=== PATIENT | male | born 1955 | race Caucasian/White ===

== ENCOUNTER 2024-04-29 07:34 | Outpatient (CLI) | payer MEDICARE, OTHER, SELFPAY ==
--- NOTE | ~2024-04-29 | XR_ITS ---
HISTORY: Bilateral shoulder and AC joint pain, surgery hx COMPARISON: None TECHNIQUE: 3 views of the right shoulder were performed FINDINGS: No acute fracture. The glenohumeral and acromioclavicular joint space is maintained. Postoperative change within the right humeral head. The visualized portion of the adjacent right lung is clear. The humeral head is well seated within the glenoid fossa. IMPRESSION: No acute fracture or anterior dislocation. Reviewed, dictated and finalized at location A. UNTS RECEIVABLE REPRESENTATIVE
--- NOTE | ~2024-04-29 | XR_ITS ---
HISTORY: Bilateral shoulder and AC joint pain, surgery hx COMPARISON: None TECHNIQUE: 3 views of the left shoulder were performed FINDINGS: No acute fracture. The glenohumeral joint space is maintained. The acromioclavicular joint space is widened with multiple extra-articular osseous densities within t he joint space and upsloping of the distal end of the left clavicle. Findings consistent with prior tendon repair within the humeral head. The visualized portion of the adjacent left lung is clear. The humeral head is well seated within the glenoid fossa. IMPRESSION: Degenerative disease, without acute fracture or anterior dislocation. Reviewed, dictated and finalized at location A. NET SOFTWARE DEVELOPER
--- OUTSIDE RECORDS SUMMARY | 2024-04-29 07:42 | XMS_ITS | Encounter Summary ---
Author Name [facility] Organization [facility] Address [address] [place] [address] Care Team Providers Care Wildlife Protector Name Role Phone BHARATH LAWSON Primary Care Provider Unavailabl e Insurance Providers: All historical and current Section Date Range: From patient's date of to the date document was created. This section includes the names of all active insurance providers for the patient. Insurance Provider Type of Coverage Plan Name Start of Policy Coverage End of Policy Coverage Group Number Member ID Insurance Provider's Telephone Number Policy Arreaga's Name Patient's Relationship to Policy Arreaga MEDICARE (WNR) MEDICARE (M) PART A Sep 03, 2018 PART A [id number] HÉCTOR CROOK III PATIENT MEDICARE (WNR) MEDICARE (M) PART B Sep 03, 2018 PART B [id number] AMBREEN DRAKEHÉCTOR PATIENT -FO R-LIFE TRICA RE FOR LIFE WNR Sep 03, 2018 FOR LIFE [id number] [phone] HÉCTOR CROOK PATIENT Selected Encounter This section includes the information on record at [place] for the Encounter. Date/Time Encounter Type Encounter Description Reason Pro vider Source Mar 18, 2024 10:53 AM Outpatient Encounter [facility]ARE CONSULT [facility] Encounter Template Text not used by [facility] Plan of Treatment: Future Appointments (+ 6 months) and Future Tests (+/- 45 days) The Plan of Treatment section includes future care activities for the patient from all [place] treatmentfacilities. This section includes future appointments and future orders which are active, pending or scheduled. Future Appointments This section includes appointments that were scheduled to occur 6 months from the date of the Encounter, up to a maximum of 20 appointments. The data comes from all [place] treatment [facility]. Appointment Date/Time Appointment Type Appointme nt Facility Name May 30, 2024 08:00 AM AMBULATORY - NONE [facility] July 09, 2024 11:30 AM AMBULATORY - MEDICINE [facility] Active, Pending, and Scheduled Orders This section includes a listing of several types of active, pending, and scheduled orders, including clinic medications orders, diagnostic test orders, procedure orders and consult orders; where the start date of the order is 45 days before the date of the Encounter or 45 days after the date of theEncounter. The data comes from all [facility]. Test Date/Time Test Type Test Details Facility Name Mar 18, 2024 10:32 AM Consult Order [facility] DENTAL GEN Cons Physics Tutor's Choice [facility] Social History: Smoking Status (Most current) and Tobacco Use (All prior to encounter date) This section includes the most current, and the historical, smoking and tobacco- related health factors from the [place] facility where the Encounter took place. Current Smoking Status This section includes the most current smoking, or tobacco-related health factor, from the [place] facility where the Encounter took place. Date/Time Current Smoking Status Comment Keily hong Apr 25, 2019 01:06 PM VA-TOBACCO NEVER USED [facility] Tobacco Use History This section includes a history of the smoking, or tobacco-related health factors, that were collected on or before the date of the Encounter. The data comes from the [place] facility where the Encounter took place. Date/Time Smoking Status/Tobacco Use Comment F acility Jan 02, 2015 08:31 AM LIFETIME NON-USER OF TOBACCO [facility] Oct 31, 2013 02:39 PM LIFETIME NON-USER OF TOBACCO [facility] Sep 12, 2012 12:03 PM LIFETIME NON-USER OF TOBACCO [facility] Nov 10, 2006 08:40 AM LIFETIME NON-USER OF TOBACCO [facility] Advance Directives: All historical and current Section Date Range: From patient's date of to the date document was created. This section includes ALL of a patient's completed or amended [place] Advance and Rescinded Directives. The entries below indicate that a directive exists for the patient, but an actual copy is not included with this document. The data comes from all [place] facilities. Date Advance Directives Provider Source Aug 12, 2016 ADVANCE DIRECTIVE DISCUSSION TINA CHAN [facility] Encounter Notes: All associated encounter notes This section contains the clinical notes associated to the Encounter. Date/Time Encounter Note(s) Provider Source Mar 18, 2024 10:53 AM LETTERS: LOCAL TITLE: COMMUNITY CARE-REQUEST FOR SERVICES (RFS) LETTER ST STANDARD TITLE: LETTERS DATE OF NOTE: MAR 18, 2024@10:53 ENTRY DATE: MAR 18, 2024@10:53:54 AUTHOR: MANFRED CANTRELL EXP COSIGNER: URGENCY: STATUS: COMPLETED [facility] [address] [place] [address] [facility] Manjinder Farah [address] [place] [address] Dear Provider, Information: Patient Name: HÉCTOR CROOK Date of : Sep [facility] Dental Service has received the request [id number] PERIODIC ORAL EVALUATION-ESTABLISHED PT D0274 [place]-FOUR RADIOGRAPHIC IMAGES #3, D0220 INTRAORAL-PERIAPICAL FIRST FILM #14, 19, 30, D0230 INTRAORAL-PERIAPICAL EACH ADD. 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 D1206 TOPICAL APPLICATION OF FLUORIDE VARNISH from you for services that were not originally authorized in the [facility] Administration for this [place]. Upon review, the following determination has been made: Service has been approved. (Authorization #[id number]) Should you have questions, please contact us at [phone] to speak with a patient visitor service assistant. As a reminder, if applicable, return medical records within 30 days for routine services. Sincerely, MANFRED CANTRELL COMMUN[facility] CARE RN MANFRED CANTRELL [facility]
--- OUTSIDE RECORDS SUMMARY | 2024-04-29 07:43 | XMS_ITS | Encounter Summary ---
Author Organization [facility] Address 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
--- OUTSIDE RECORDS SUMMARY | 2024-04-29 07:43 | XMS_ITS ---
Author Name [facility] Address [address] [place] [address] Care Team Providers Care Spa Receptionist Name Role Phone BHARATH LAWSON Primary Care [...] PART A Sep 03, 2018 PART A [id number] HÉCTOR CROOK III PATIENT MEDICARE (WNR) MEDICARE (M) PART B Sep 03, 2018 PART B [id number] AMBREEN DRAKEHÉCTOR PATIENT -FO R-LIFE TRICA RE FOR LIFE WNR Sep 03, 2018 FOR LIFE [id number] [phone] HÉCTOR CROOK PATIENT Selected Encounter This section includes the information on record at [place] for the Encounter. Date/Time Encounter Type Encounter Description Reason Pro vider Source Mar 18, 2024 08:39 AM Outpatient Encounter COMMUNITY CARE CONSULT IHE Encounter Template Text not used by [facility] Plan of Treatment: Future Appointments (+ 6 months) and Future Tests (+/- 45 days) The Plan of Treatment section includes future care activities for the patient from all [place] treatmentfacilities. This section includes future appointments and future orders which are active, pending or scheduled. Future Appointments This section includes appointments that were scheduled to occur 6 months from the date of the Encounter, up to a maximum of 20 appointments. The data comes from all [place] treatment [facility]. Appointment Date/Time Appointment Type Appointme nt Facility Name May 30, 2024 08:00 AM AMBULATORY - NONE [facility] July 09, 2024 11:30 AM AMBULATORY - MEDICINE [facility] Active, Pending, and Scheduled Orders This section includes a listing of several types of active, pending, and scheduled orders, including clinic medications orders, diagnostic test orders, procedure orders and consult orders; where the start date of the order is 45 days before the date of the Encounter or 45 days after the date of theEncounter. The data comes from all [facility]. Test Date/Time Test Type Test Details Facility Name Mar 18, 2024 10:32 AM Consult Order COMMUNITY CARE-[facility] DENTAL GEN Cons Marketing Clerk's Choice [facility] Social History: Smoking Status (Most current) and Tobacco Use (All prior to encounter date) This section includes the most current, and the historical, smoking and tobacco- related health factors from the [place] facility where the Encounter took place. Current Smoking Status This section includes the most current smoking, or tobacco-related health factor, from the [place] facility where the Encounter took place. Date/Time Current Smoking Status Comment Keily hong Apr 25, 2019 01:06 PM VA-TOBACCO NEVER USED [facility] Tobacco Use History This section includes a history of the smoking, or tobacco-related health factors, that were collected on or before the date of the Encounter. The data comes from the [place] facility where the Encounter took place. Date/Time Smoking Status/Tobacco Use Comment F acility Jan 02, 2015 08:31 AM LIFETIME NON-USER OF TOBACCO [facility] Oct 31, 2013 02:39 PM LIFETIME NON-USER OF TOBACCO [facility] Sep 12, 2012 12:03 PM LIFETIME NON-USER OF TOBACCO [facility] Nov 10, 2006 08:40 AM LIFETIME NON-USER OF TOBACCO [facility] Advance Directives: All historical and current Section Date Range: From patient's date of to the date document was created. This section includes ALL of a patient's completed or amended [place] Advance and Rescinded Directives. The entries below indicate that a directive exists for the patient, but an actual copy is not included with this document. The data comes from all [place] facilities. Date Advance Directives Provider Source Aug 12, 2016 ADVANCE DIRECTIVE DISCUSSION TINA CHAN [facility] Encounter Notes: All associated encounter notes This section contains the clinical notes associated to the Encounter. Date/Time Encounter Note(s) Provider Source Mar 18, 2024 10:30 AM ADDENDUM: LOCAL TITLE: Addendum STANDARD TITLE: ADDENDUM DATE OF NOTE: MAR 18, 2024@10:30:45 ENTRY DATE: MAR 18, 2024@10:30:46 AUTHOR: KATE DENSON COSIGNER: URGENCY: STATUS: COMPLETED [facility] DENTAL SERVICE/COMMUNITY CARE RFS DETERMINATION The requested treatment: AUTHORIZED SUBMITTED. AUTHORIZED TREATMENT: D0120 PERIODIC ORAL EVALUATION-ESTABLISHED PT D0274 BITEWINGS-FOUR RADIOGRAPHIC IMAGES #3, D0220 INTRAORAL-PERIAPICAL FIRST FILM #14, 19, 30, D0230 INTRAORAL-PERIAPICAL EACH ADD. 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 * New consult(s) placed with corresponding SEOC(s). * to continue dental treatment with community provider. REQUESTING PROVIDER: Manjinder Antoine [address] [place] [address] Specialty: Dentist - Control Room Helper Network: [facility] COMMUNITY CARE COORDINATION NOTES Please continue 's care for authorized treatment. /donna/ KATE DENSON DMD STAFF DENTIST, GENERAL DENTIST Signed: 03/18/2024 10:32 Receipt Acknowledged By: 03/18/2024 10:49 /juli [facility]LL [facility] RN --- Original Document --- 03/18/24 COMMUNITY CARE-REQUEST FOR SERVICE NOTE [facility]: Request for Services (RFS) documentation has been sent for scanning to [employer] Community Care Consult: COMMUNITY CARE-STL DEN GEN Consult No: [id number] Date sent to scanning: Mar A Request for Service (RFS) form [id number] has been received which includes the following: Care Requested: D0120 PERIODIC ORAL EVALUATION-ESTABLISHED PT D0274 BITEWINGS-FOUR RADIOGRAPHIC IMAGES #3, D0220 INTRAORAL-PERIAPICAL FIRST FILM #14, 19, 30, D0230 INTRAORAL-PERIAPICAL EACH ADD. 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 D1206 TOPICAL APPLICATION OF FLUORIDE VARNISH ICD-10 Dx code: K03.6 Date VA received request: Mar Date service required: Mar Requesting [facility] Provider Information: [facility] Manjinder Escobedo [address] [place] [address] Specialty: Dentist - Control Room Helper Network: [facility] /donna/ FUENTES MONTERO ADVANCED SHOW CARD WRITER Signed: 03/18/2024 08:46 Receipt Acknowledged By: 03/18/2024 10:30 /donna/ KATE DENSON DMD STAFF DENTIST, GENERAL DENTIST KATE DENSONMID [facility] Mar 18, 2024 08:39 AM NONVA NOTE: LOCAL TITLE: COMMUNITY CARE-REQUEST FOR SERVICE NOTE ST[facility] STANDARD TITLE: NONVA NOTE DATE OF NOTE: MAR 18, 2024@08:39 ENTRY DATE: MAR 18, 2024@08:41:37 AUTHOR: FUENTES MONTERO EXP COSIGNER: URGENCY: STATUS: COMPLETED COMMUNITY CARE-REQUEST FOR SERVICE NOTE ST[facility] Has ADDENDA Request for Services (RFS) documentation has been sent for scanning to [employer] Community Care Consult: COMMUNITY CARE-ST[facility] DEN GEN Consult No: [id number] Date sent to scanning: Mar A Request for Service (RFS) form [id number] has been received which includes the following: Care Requested: D0120 PERIODIC ORAL EVALUATION-ESTABLISHED PT D0274 BITEWINGS-FOUR RADIOGRAPHIC IMAGES #3, D0220 INTRAORAL-PERIAPICAL FIRST FILM #14, 19, 30, D0230 INTRAORAL-PERIAPICAL EACH ADD. 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 D1206 TOPICAL APPLICATION OF FLUORIDE VARNISH ICD-10 Dx code: K03.6 Date VA received request: Mar Date service required: Mar Requesting Community Provider Information: Manjinder Antoine [address] [place] [address] Specialty: Dentist - Control Room Helper Network: [place] [id number] /juli MONTERO ADVANCED SHOW CARD WRITER Signed: 03/18/2024 08:46 Receipt Acknowledged By: 03/18/2024 10:30 /juli DENSON DMD STAFF DENTIST, GENERAL DENTIST 03/18/2024 ADDENDUM STATUS: COMPLETED [facility] DENTAL SERVICE/[facility] CARE RFS DETERMINATION The requested treatment: AUTHORIZED SUBMITTED. AUTHORIZED TREATMENT: D0120 PERIODIC ORAL EVALUATION-ESTABLISHED PT D0274 BITEWINGS-FOUR RADIOGRAPHIC IMAGES #3, D0220 INTRAORAL-PERIAPICAL FIRST FILM #14, 19, 30, D0230 INTRAORAL-PERIAPICAL EACH ADD. 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 * New consult(s) placed with corresponding SEOC(s). * to continue dental treatment with community provider. REQUESTING PROVIDER: Manjinder Antoine [address] [place] [address] Specialty: Dentist - Control Room Helper Network: [place] [id number] COMMUNITY CARE COORDINATION NOTES Please continue 's care for authorized treatment. /juli DENSON DMD STAFF DENTIST, GENERAL DENTIST Signed: 03/18/2024 10:32 Receipt Acknowledged By: * AWAITING SIGNATURE * MANFRED CANTRELL GABRY'EL P [facility]
--- OUTSIDE RECORDS SUMMARY | 2024-04-29 07:43 | XMS_ITS | Continuity of Care Document ---
Author Name DOD-IN Organization DOD-IN Care Team Providers Care Sanitation Inspector Name Role Phone [facility] Unavailable Unavailable Problems Combined list of problems from Department of Defense and Veterans Affairs facilities. It does not include entries that were removed or entered in error. 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 DoD astigmatism regular Active Condition Do D injury of upper extremity fingers Inactive Condition DoD seborrheic keratosis Inactive Condition DoD fracture Inactive Condition DoD fracture of ankle Inactive Condition DoD ankle sprain anterior talofibular ligament left Inactive Condition DoD insomnia Active Condition [facility] visit for: issue repeat prescription Active Condition [facility] visit for: preoperative exam Active Condition [facility] visit for: issue repeat prescription for medication Active Condition 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 DoD Patient Counseling: Inquiry & Counseling Active Condition [facility] visit for: administrative purpose Inactive Condition DoD Other Physical Therapy Active Condition DoD spinal stenosis cervical Active Condition DoD cervicalgia Active Condition DoD hearing loss Active Condition DoD Patient Education Active Condition 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 [facility] Benign prostatic hyperplasia Active Condition [facility] Chronic back pain (SNOMED CT 842088415) Active Condition [facility] Gastroesophageal reflux disease (SNOMED CT 413953757) Active Condition [facility] Spinal stenosis in cervical region (SNOMED CT 66466640) Active Condition [facility] Ulcer of lower extremity (SNOMED CT 60100630) Active Condition [facility] Unspecified General Medical Examination (ICD-9-CM V70.9) Active Condition [facility] Diagnosis: ICD-10-CM M48.02 Spinal stenosis, cervical region Active Diagnosis [facility] Diagnosis: ICD-10-CM Z71.9 Counseling, unspecified Active Diagnosis [facility] Diagnosis: ICD-10-CM N40.0 Benign prostatic hyperplasia without lower urinry tract symp Active Diagnosis [facility] Diagnosis: ICD-10-CM N40.1 Benign prostatic hyperplasia with lower urinary tract symp Active Diagnosis [facility] Medications Combined list of outpatient medications from Department of Defense and [facility] Affairs facilities.Medications provided include 1) outpatient medications from the last 15 months, and 2) patient-reported medications. Medication Details Route Status Patient Instructions Prescription Expires Prescription Number Last Dispense Date Ordering Provider Order Date Order Qty Source ASPIRIN 81MG TAB,EC TAKE ONE TABLET BY MOUTH ONCE A DAY ORAL ACTIVE KELLY LAWSON 2017 [facility] CHONDROITIN /GLUCOSAMIN E CAP/TAB TAKE 1 CAP/TAB BY MOUTH TWICE A DAY ORAL ACTIVE LULUKELLY WEBB 2017 [facility] CYCLOSPORIN E (cyclospori ne), 0.05 %, DROPERETTE, OPHTHALMIC, APOTEX NABOR, 60 ea. VIAL Active [id number] 2023 180 Pharmac y Data Transac tion Service Facilit y FISH OIL 1000MG (500MG DHA/EPA) CAP,ORAL TAKE 1 CAPSULE BY MOUTH ONCE A DAY ORAL ACTIVE LULUKELLY Shen 2017 [facility] MULTIVITAMI NS CAP/TAB TAKE ONE TABLET BY MOUTH ONCE A DAY ORAL ACTIVE LULUKELLY WEBB 2017 [facility] PSYLLIUM CAP,ORAL TAKE 1 CAPSULE BY MOUTH ONCE A DAY ORAL ACTIVE LULUKELLY Shen 2017 [facility] ZOSTER VACCINE LIVE INJ,LYPHL INJECT UNDER THE SKIN ONE-TIME SUBCUT ANEOUS ACTIVE CEZAR GONZALEZ 2013 [facility] Allergies, Adverse Reactions, Alerts Combined list of allergies from Department of Defense and Veterans Affairs facilities. It does not include entries that were removed or entered in error. Substance Category Reaction Severity Reaction type Status Date Reported Comments Source No Known Allergies Drug allergy (disorder) active 07/08/2008 [place], [place] Immunizations Combined list of available immunizations from the Department of [facility] and Veterans Affairs facilities. Immunization Series Date Given Administered By Site Reaction Lot Number CVX Code Drug Order Runner Status Comments Source COVID-19 ([place] EXTENDED STAYS), VECTOR-NR, [id number], PF, 0.5 ML 1 2020 212 complet ed [facility] pneumococcal polysaccharid e PPV23 2019 [facility] () Not Given pneumococ giovana polysacch aride PPV23 [facility] Influenza vaccine, quadrivalent, adjuvanted 2019 [facility] () Not Given Influenza vaccine, quadrival ent, adjuvante d DoD INFLUENZA, UNSPECIFIED FORMULATION 2019 88 complet ed [facility] PNEUMOCOCCAL POLYSACCHARID E PPV23 2019 33 complet ed [facility] ZOSTER RECOMBINANT 2 2019 187 complet ed [facility] ZOSTER RECOMBINANT 1 2019 187 complet ed [facility] INFLUENZA, INJECTABLE, QUADRIVALENT, PRESERVATIVE FREE 2018 150 complet ed [facility] zoster recombinant 2018 [facility] MOR[facility] () Not Given zoster recombina nt [facility] zoster recombinant 2018 ELISA HALEY () Not Given zoster recombina nt [facility] INFLUENZA, INJECTABLE, QUADRIVALENT, PRESERVATIVE FREE 2017 150 complet ed Partner: [facility]. Administe red by: [facility] Clinician (NPI=Not Provided) . Partner 4 Lot#: [id number] Mfr: Sanofi Pasteur [facility] TDAP 2016 115 complet ed [facility] INFLUENZA, SEASONAL, INJECTABLE, PRESERVATIVE FREE 2015 140 complet ed Partner: Angella . Administe red by: [facility] Clinician (NPI=Not Provided) . Partner 4 Lot#: [id number] Mfr: SEQIRUS [facility] INFLUENZA, SEASONAL, INJECTABLE, PRESERVATIVE FREE 2014 140 complet ed [facility] INFLUENZA, UNSPECIFIED FORMULATION 2013 88 complet ed [facility] ZOSTER LIVE 2013 121 complet ed [facility] TD(ADULT) UNSPECIFIED FORMULATION 2013 139 complet ed Left Deltoid [facility] INFLUENZA, UNSPECIFIED FORMULATION 2012 88 complet ed [facility] INFLUENZA, UNSPECIFIED FORMULATION 2011 88 complet ed [facility] INFLUENZA, UNSPECIFIED FORMULATION 2010 88 complet ed [employer] influenza, seasonal, injectable 2010 [id number] sanofi pasteur complet ed influenza , seasonal, injectabl e 11/19/10 Given Ambulat ory Pharmac y Influenza, seasonal, injectable 1 2010 [id number] Sanofi Pasteur ([facility]) complet ed Influenza , seasonal, injectabl e DoD hepatitis A adult vaccine 2010 [id number] 2AA 52 GlaxoSmithKli ne complet ed hepatitis A adult vaccine 04/12/10 Given Ambulat ory Pharmac y hepatitis A vaccine, adult dosage 2 2010 [id number] 2AA 52 SmithKline (SKB) complet ed hepatitis A vaccine, adult dosage DoD influenza virus vaccine,split 2009 [id number] CSL Behring complet ed influenza virus vaccine,s plit 01/18/10 Given Ambulat ory Pharmac y influenza virus vaccine, split virus (incl. purified surface antigen)-reti red CODE 1 2009 [id number] CSL [employer] (CSL) complet ed influenza virus vaccine, split virus (incl. purified surface antigen)- retired CODE DoD Novel influenza-H1N 1-09, injectable 2009 [id number] 1 127 Novartis Pharmaceutica ls complet ed Novel influenza -[id number], injectabl e 04/17/09 Given Ambulat ory Pharmac y Novel influenza-H1N 1-09, injectable 1 2009 [id number] 1 127 Novartis Pharmaceutica l Nabor. (NOV) complet ed Novel influenza -[id number], injectabl e DoD hepatitis A adult vaccine 2008 [id number] 3AA 52 GlaxoSmithKli ne complet ed hepatitis A adult vaccine 01/15/09 Given Ambulat ory Pharmac y tetanus, diphtheria, acellular pertu is 2008 [id number] 9CA 115 GlaxoSmithKli ne complet ed tetanus, diphtheri a, acellular pertussis 01/15/09 Given Ambulat ory Pharmac y hepatitis A vaccine, adult dosage 1 2008 [id number] 3AA 52 SmithKline (SKB) complet ed hepatitis A vaccine, adult dosage DoD tetanus toxoid, reduced diphtheria toxoid, and acellular pertu is vaccine, adsorbed 1 2008 [id number] 9CA 115 SmithKline (SKB) complet ed tetanus toxoid, reduced diphtheri a toxoid, and acellular pertussis vaccine, adsorbed DoD influenza virus vaccine,split 2008 [id number] 15 sanofi pasteur complet ed influenza virus vaccine,s plit 01/09/09 Given Ambulat ory Pharmac y influenza virus vaccine, split virus (incl. purified surface antigen)-reti red CODE 1 2008 [id number] 15 Sanofi Pasteur ([facility]) complet ed influenza virus vaccine, split virus (incl. purified surface antigen)- retired CODE DoD INFLUENZA, UNSPECIFIED FORMULATION 2007 88 complet ed [facility] INFLUENZA, UNSPECIFIED FORMULATION 2006 88 complet ed [facility] influenza virus vaccine,split 2004 [id number] 15 sanofi pasteur complet ed influenza virus vaccine,s plit 01/24/05 Given Ambulat ory Pharmac y influenza virus vaccine, split virus (incl. purified surface antigen)-reti red CODE 1 2004 [id number] 15 Sanofi Pasteur ([facility]) complet ed influenza virus vaccine, split virus (incl. purified surface antigen)- retired CODE DoD TDAP 2003 115 complet ed [facility] tuberculin purified protein derivative 1984 96 complet ed Patient Tolerance : Negative Ambulat ory Pharmac y tuberculin skin test; purified protein derivative solution, intradermal 1 1984 Unknown, Provider 96 Transcribed (TRS) complet ed tuberculi n skin test; purified protein derivativ e solution, intraderm al DoD poliovirus vaccine, inactivated 1978 10 complet ed polioviru s vaccine, inactivat ed 09/03/78 Given Ambulat ory Pharmac y poliovirus vaccine, inactivated 1 1978 10 Transcribed (TRS) complet ed polioviru s vaccine, inactivat ed DoD Results Combined list of recent chemistry, hematology and other laboratory results from Department of Defense and Veterans Affairs, ranging from 15 months to all on record, depending upon the facility. Order Name Results Value Reference Range Date Interpretation Specimen Comments Source OCCULT BLOOD FIT X1 SCREEN HEMOGLOBIN .GASTROINT ESTINAL.LO WER [PRESENCE] IN STOOL BY IMMUNOASSA Y Negative 09/12 Specimen Type: FECES No comment entered. Ordering Provider: BJORN LAWSON Report Released Date/Time: Sep 19, 2023 01:22 PM Reporting Lab: [facility] [address] [place] [phone] Performing Lab: [facility] [address] [place] [phone] [facility] URINALYS IS (STL-PB) COLOR OF URINE Light-Ye llow 06/11 Specimen Type: URINE No comment entered. Ordering Provider: BJORN LAWSON Report Released Date/Time: Jun 06, 2023 03:02 PM Reporting Lab: [facility] [address] [place] [phone] Performing Lab: [address] [phone] [facility] URINALYS IS (STL-PB) BILIRUBIN. TOTAL [PRESENCE] IN URINE BY TEST STRIP Negative mg/dL 06/11 Specimen Type: URINE No comment entered. Ordering Provider: BJORN LAWSON Report Released Date/Time: Jun 06, 2023 03:02 PM Reporting Lab: [facility] [address] [place] [phone] Performing Lab: [place] [phone] URINALYS IS (STL-PB) PH OF URINE BY TEST STRIP 6.5 5.0 - 8.0 06/11 Specimen Type: URINE No comment entered. Ordering Provider: BJORN LAWSON Report Released Date/Time: Jun 06, 2023 03:02 PM Reporting Lab: [address] [phone] Performing Lab: [address] URINALYS IS (STL-PB) APPEARANCE OF URINE Clear 06/11 Specimen Type: URINE No comment entered. Ordering Provider: BJORN LAWSON Report Released Date/Time: Jun 06, 2023 03:02 PM Reporting Lab: [address] [phone] Performing Lab: [address] [phone] [place] [address] URINALYS IS (STL-PB) NITRITE [PRESENCE] IN URINE BY TEST STRIP Negative mg/dL 06/11 Specimen Type: URINE No comment entered. Ordering Provider: BJORN LAWSON Report Released Date/Time: Jun 06, 2023 03:02 PM Reporting Lab: [address] [address] Performing Lab: [address] [address] [facility] URINALYS IS (STL-PB) GLUCOSE [MASS/VOLU ME] IN URINE BY TEST STRIP Normalmg /dL 06/11 Specimen Type: URINE No comment entered. Ordering Provider: BJORN LAWSON Report Released Date/Time: Jun 06, 2023 03:02 PM Reporting Lab: [facility] [address] [place] [phone] Performing Lab: [address] [phone] [facility] URINALYS IS (STL-PB) PROTEIN [MASS/VOLU ME] IN URINE BY TEST STRIP Negative mg/dL - 20 06/11 Specimen Type: URINE No comment entered. Ordering Provider: BJORN LAWSON Report Released Date/Time: Jun 06, 2023 03:02 PM Reporting Lab: [address] [phone] Performing Lab: [address] [phone] URINALYS IS (STL-PB) URN.UROBIL INOGEN Normalmg /dL 06/11 Specimen Type: URINE No comment entered. Ordering Provider: BJORN LAWSON Report Released Date/Time: Jun 06, 2023 03:02 PM Reporting Lab: [address] [phone] Performing Lab: [address] [phone] [facility] URINALYS IS (STL-PB) HEMOGLOBIN [MASS/VOLU ME] IN URINE BY TEST STRIP Negative mg/dL 06/11 Specimen Type: URINE No comment entered. Ordering Provider: BJORN LAWSON Report Released Date/Time: Jun 06, 2023 03:02 PM Reporting Lab: [facility] [address] [place] [phone] Performing Lab: [address] [address] [facility] URINALYS IS (STL-PB) KETONES [MASS/VOLU ME] IN URINE BY TEST STRIP Negative mg/dL 06/11 Specimen Type: URINE No comment entered. Ordering Provider: BJORN LAWSON Report Released Date/Time: Jun 06, 2023 03:02 PM Reporting Lab: [place] [address] Performing Lab: [address] URINALYS IS (STL-PB) URN.LEUK.E ST. Negative mg/dL 06/11 Specimen Type: URINE No comment entered. Ordering Provider: BJORN LAWSON Report Released Date/Time: Jun 06, 2023 03:02 PM Reporting Lab: [place] [address] Performing Lab: [address] URINALYS IS (STL-PB) SPECIFIC GRAVITY OF URINE 1.010 1.005 - 1.029 06/11 Specimen Type: URINE No comment entered. Ordering Provider: BJORN LAWSON Report Released Date/Time: Jun 06, 2023 03:02 PM Reporting Lab: [place] [address] Performing Lab: [address] PROST. SPECIFIC AG.(PB-S TL) PROSTATE SPECIFIC AG [MASS/VOLU ME] IN SERUM OR PLASMA 3.316 ng/mL 0 - 4 06/11 Specimen Type: SERUM Comment: The listed sex of this patient may not be a typical indication for this test. Therefore, reference ranges or interpretiv e criteria listed may not be valid. Clinical correlation suggested. Ordering Provider: MINISTERIO VILLAR Report Released Date/Time: Jun 12, 2023 09:45 AM Reporting Lab: [place] [address] Performing Lab: [facility] [address] [facility] [address] [facility] HGA1C HEMOGLOBIN A1C/HEMOGL OBIN.TOTAL IN BLOOD 5.3 4.0 - 6.0 06/11 Specimen Type: BLOOD No comment entered. Ordering Provider: JBORN LAWSON Report Released Date/Time: Jun 06, 2023 03:02 PM Reporting Lab: [address] [phone] Performing Lab: [facility] [address] [place] [phone] [facility] VITAMIN D, 25-HYDRO XY 25-HYDROXY VITAMIN D3 [MASS/VOLU ME] IN SERUM OR PLASMA 35.8 ng/mL 30 - 96 06/11 Specimen Type: SERUM No comment entered. Ordering Provider: BJORN LAWSON Report Released Date/Time: Jun 06, 2023 03:02 PM Reporting Lab: [facility] [address] [place] [phone] Performing Lab: [address] [phone] [facility] LIPID PANEL (STL) CHOLESTERO L [MASS/VOLU ME] IN SERUM OR PLASMA 198 mg/dL 0 - 200 06/11 Specimen Type: PLASMA Comment: No hemolysis noted. Ordering Provider: BJORN LAWSON Report Released Date/Time: Jun 06, 2023 03:02 PM Reporting Lab: [facility] [address] [place] [phone] Performing Lab: [address] [address] [facility] LIPID PANEL (STL) TRIGLYCERI DE [MASS/VOLU ME] IN SERUM OR PLASMA 93 mg/dL 0 - 150 06/11 Specimen Type: PLASMA Comment: No hemolysis noted. Ordering Provider: BJORN LAWSON Report Released Date/Time: Jun 06, 2023 03:02 PM Reporting Lab: [facility] [address] [facility] [phone] Performing Lab: [facility] [address] [facility] [phone] [facility] LIPID PANEL (STL) CHOLESTERO L IN LDL [MASS/VOLU ME] IN SERUM OR PLASMA BY CALCULAMADELEINEO N 126 mg/dL 06/11 Specimen Type: PLASMA Comment: No hemolysis noted. Ordering Provider: BJORN LAWSON Report Released Date/Time: Jun 06, 2023 03:02 PM Reporting Lab: [facility] [address] [place] [phone] Performing Lab: [place] [id number] [place] [address] LIPID PANEL (STL) CHOLESTERO L IN HDL [MASS/VOLU ME] IN SERUM OR PLASMA 53 mg/dL 40 06/11 Specimen Type: PLASMA Comment: No hemolysis noted. Ordering Provider: BJORN LAWSON Report Released Date/Time: Jun 06, 2023 03:02 PM Reporting Lab: [facility] [address] [place] [phone] Performing Lab: [facility] [address] [place] [phone] [facility] COMPREHE NSIVE METABOLI C PANEL CREATININE [MASS/VOLU ME] IN SERUM OR PLASMA 1.07 mg/dL 0.7 - 1.3 06/11 Specimen Type: PLASMA Comment: No hemolysis noted. Ordering Provider: BJORN LAWSON Report Released Date/Time: Jun 06, 2023 03:02 PM Reporting Lab: [facility] [address] [place] [phone] Performing Lab: [facility] [address] [place] [phone] [facility] COMPREHE NSIVE METABOLI C PANEL UREA NITROGEN [MASS/VOLU ME] IN SERUM OR PLASMA 13.9 mg/dL 9.0 - 25.0 06/11 Specimen Type: PLASMA Comment: No hemolysis noted. Ordering Provider: BJORN LAWSON Report Released Date/Time: Jun 06, 2023 03:02 PM Reporting Lab: [facility] [address] [facility] [address] Performing Lab: [facility] [address] [facility] [phone] [place] [address] COMPREHE NSIVE METABOLI C PANEL GLUCOSE [MASS/VOLU ME] IN SERUM OR PLASMA 97 mg/dL 72 - 99 06/11 Specimen Type: PLASMA Comment: No hemolysis noted. Ordering Provider: BJORN LAWSON Report Released Date/Time: Jun 06, 2023 03:02 PM Reporting Lab: [facility] [address] [place] [phone] Performing Lab: [facility] [address] [place] [phone] [place] [address] COMPREHE NSIVE METABOLI C PANEL SODIUM [MOLES/VOL UME] IN SERUM OR PLASMA 139 meq/L 136 - 145 06/11 Specimen Type: PLASMA Comment: No hemolysis noted. Ordering Provider: BJORN LAWSON Report Released Date/Time: Jun 06, 2023 03:02 PM Reporting Lab: [facility] [address] [place] [phone] Performing Lab: [facility] [address] [place] [phone] [place] [address] COMPREHE NSIVE METABOLI C PANEL POTASSIUM [MOLES/VOL UME] IN SERUM OR PLASMA 4.4 meq/L 3.5 - 5 06/11 Specimen Type: PLASMA Comment: No hemolysis noted. Ordering Provider: BJORN LAWSON Report Released Date/Time: Jun 06, 2023 03:02 PM Reporting Lab: [facility] [address] [place] [phone] Performing Lab: [facility] [address] [place] [phone] [facility] COMPREHE NSIVE METABOLI C PANEL CHLORIDE [MOLES/VOL UME] IN SERUM OR PLASMA 105 meq/L 98 - 107 06/11 Specimen Type: PLASMA Comment: No hemolysis noted. Ordering Provider: BJORN LAWSON Report Released Date/Time: Jun 06, 2023 03:02 PM Reporting Lab: [facility] [address] [place] [phone] Performing Lab: [facility] [address] [place] [phone] [facility] COMPREHE NSIVE METABOLI C PANEL CARBON DIOXIDE, TOTAL [MOLES/VOL UME] IN SERUM OR PLASMA 27 meq/L 22 - 31 06/11 Specimen Type: PLASMA Comment: No hemolysis noted. Ordering Provider: BJORN LAWSON Report Released Date/Time: Jun 06, 2023 03:02 PM Reporting Lab: [facility] [address] [place] [phone] Performing Lab: [facility] [address] [place] [address] [phone] [place] [address] COMPREHE NSIVE METABOLI C PANEL CALCIUM [MASS/VOLU ME] IN SERUM OR PLASMA 9.4 mg/dL 8.4 - 10.4 06/11 Specimen Type: PLASMA Comment: No hemolysis noted. Ordering Provider: BJORN LAWSON Report Released Date/Time: Jun 06, 2023 03:02 PM Reporting Lab: [facility] [address] [place] [phone] Performing Lab: [facility] [address] [place] [phone] [facility] COMPREHE NSIVE METABOLI C PANEL PROTEIN [MASS/VOLU ME] IN SERUM OR PLASMA 7.3 g/dL 6 - 8.6 06/11 Specimen Type: PLASMA Comment: No hemolysis noted. Ordering Provider: BJORN LAWSON Report Released Date/Time: Jun 06, 2023 03:02 PM Reporting Lab: [facility] [address] [place] [phone] Performing Lab: [facility] [address] [place] [phone] [facility] COMPREHE NSIVE METABOLI C PANEL ALBUMIN [MASS/VOLU ME] IN SERUM OR PLASMA 4.4 g/dL 3.4 - 5 06/11 Specimen Type: PLASMA Comment: No hemolysis noted. Ordering Provider: BJORN LAWSON Report Released Date/Time: Jun 06, 2023 03:02 PM Reporting Lab: [facility] [address] [place] [phone] Performing Lab: [facility] [address] [place] [phone] [facility] COMPREHE NSIVE METABOLI C PANEL BILIRUBIN. TOTAL [MASS/VOLU ME] IN SERUM OR PLASMA 1.1 mg/dL 0.2 - 1.2 06/11 Specimen Type: PLASMA Comment: No hemolysis noted. Ordering Provider: BJORN LAWSON Report Released Date/Time: Jun 06, 2023 03:02 PM Reporting Lab: [facility] [address] [place] [phone] Performing Lab: [facility] [address] [facility] [phone] [facility] COMPREHE NSIVE METABOLI C PANEL ALKALINE PHOSPHATAS E [ENZYMATIC ACTIVITY/V OLUME] IN SERUM OR PLASMA 114 U/L 40 - 150 06/11 Specimen Type: PLASMA Comment: No hemolysis noted. Ordering Provider: BJORN LAWSON Report Released Date/Time: Jun 06, 2023 03:02 PM Reporting Lab: [facility] [address] [facility] [phone] Performing Lab: [facility] [address] [facility] [phone] [facility] COMPREHE NSIVE METABOLI C PANEL ASPARTATE AMINOTRANS FERASE [ENZYMATIC ACTIVITY/V OLUME] IN SERUM OR PLASMA 20 U/L 5 - 34 06/11 Specimen Type: PLASMA Comment: No hemolysis noted. Ordering Provider: BJORN LAWSON Report Released Date/Time: Jun 06, 2023 03:02 PM Reporting Lab: [facility] [address] [phone] Performing Lab: [facility] [address] [facility] [phone] [facility] COMPREHE NSIVE METABOLI C PANEL ALANINE AMINOTRANS FERASE [ENZYMATIC ACTIVITY/V OLUME] IN SERUM OR PLASMA 21 U/L 8 - 40 06/11 Specimen Type: PLASMA Comment: No hemolysis noted. Ordering Provider: BJORN LAWSON Report Released Date/Time: Jun 06, 2023 03:02 PM Reporting Lab: [facility] [address] [place] [phone] Performing Lab: [facility] [address] [place], [place] [phone] [address] COMPREHE NSIVE METABOLI C PANEL GLOMERULAR FILTRATION RATE/1.73 SQ M.PREDICTE D [VOLUME RATE/AREA] IN SERUM, PLASMA OR BLOOD BY CREATININE -BASED FORMULA (CKD-EPI 2020) 75.1 60 06/11 Specimen Type: PLASMA Comment: No hemolysis noted. Ordering Provider: BJORN LAWSON Report Released Date/Time: Jun 06, 2023 03:02 PM Reporting Lab: [facility] [address] [place], [place] [phone] Performing Lab: [facility] [address] [place], [place] [phone] [place] [address] CBC LEUKOCYTES [#/VOLUME] IN BLOOD BY AUTOMATED COUNT 6.5 10*3/uL 3.6 - 11.2 06/11 Specimen Type: BLOOD No comment entered. Ordering Provider: BJORN LAWSON Report Released Date/Time: Jun 06, 2023 03:02 PM Reporting Lab: [facility] [address] [place] [phone] Performing Lab: [facility] [address] [place] [phone] [facility] CBC ERYTHROCYT ES [#/VOLUME] IN BLOOD BY AUTOMATED COUNT 5.12 10*6/uL 4.10 - 5.70 06/11 Specimen Type: BLOOD No comment entered. Ordering Provider: BJORN LAWSON Report Released Date/Time: Jun 06, 2023 03:02 PM Reporting Lab: [facility] [address] [place] [address] Performing Lab: [facility] [address] [place], [place] [phone] [address] CBC HEMOGLOBIN [MASS/VOLU ME] IN BLOOD 16.1 g/dL 13.1 - 16.8 06/11 Specimen Type: BLOOD No comment entered. Ordering Provider: BJORN LAWSON Report Released Date/Time: Jun 06, 2023 03:02 PM Reporting Lab: [facility] [address] [place] [address] Performing Lab: [address] CBC HEMATOCRIT [VOLUME FRACTION] OF BLOOD 46.7 38.2 - 48.4 06/11 Specimen Type: BLOOD No comment entered. Ordering Provider: BJORN LAWSON Report Released Date/Time: Jun 06, 2023 03:02 PM Reporting Lab: [facility] [address] [place] [address] Performing Lab: [facility] [address] [place], [place] [phone] [address] CBC MCV [ENTITIC VOLUME] BY AUTOMATED COUNT 91.2 fL 80.0 - 100.0 06/11 Specimen Type: BLOOD No comment entered. Ordering Provider: BJORN LAWSON Report Released Date/Time: Jun 06, 2023 03:02 PM Reporting Lab: [facility] [address] [place] [address] Performing Lab: [facility] [address] [place] [address] CBC MCH [ENTITIC MASS] BY AUTOMATED COUNT 31.4 pg 27.0 - 34.0 06/11 Specimen Type: BLOOD No comment entered. Ordering Provider: BJORN LAWSON Report Released Date/Time: Jun 06, 2023 03:02 PM Reporting Lab: [facility] [address] [place] [phone] Performing Lab: [facility] [address] [place] [phone] [place] [address] CBC MCHC [MASS/VOLU ME] BY AUTOMATED COUNT 34.5 g/dL 33.0 - 36.0 06/11 Specimen Type: BLOOD No comment entered. Ordering Provider: BJORN LAWSON Report Released Date/Time: Jun 06, 2023 03:02 PM Reporting Lab: [facility] [address] [place] [phone] Performing Lab: [address] CBC PLATELETS [#/VOLUME] IN BLOOD BY AUTOMATED COUNT 206 10*3/uL 150 - 400 06/11 Specimen Type: BLOOD No comment entered. Ordering Provider: BJORN LAWSON Report Released Date/Time: Jun 06, 2023 03:02 PM Reporting Lab: [facility] [address] [place] [phone] Performing Lab: [facility] [address] [place] [address] [phone] CBC PLATELET MEAN VOLUME [ENTITIC VOLUME] IN BLOOD BY AUTOMATED COUNT 9.5 fL 7.5 - 11.2 06/11 Specimen Type: BLOOD No comment entered. Ordering Provider: BJORN LAWSON Report Released Date/Time: Jun 06, 2023 03:02 PM Reporting Lab: [facility] [address] [place] [phone] Performing Lab: [facility] [address] [place] [phone] [place] [address] CBC ERYTHROCYT E DISTRIBUTI ON WIDTH [RATIO] BY AUTOMATED COUNT 13.3 11.8 - 15.1 06/11 Specimen Type: BLOOD No comment entered. Ordering Provider: BJORN LAWSON Report Released Date/Time: Jun 06, 2023 03:02 PM Reporting Lab: [facility] [address] [facility] [address] Performing Lab: [facility] [address] [facility] [phone] [facility] CBC LYMPHOCYTE S/100 LEUKOCYTES IN BLOOD BY AUTOMATED COUNT 21 06/11 Specimen Type: BLOOD No comment entered. Ordering Provider: BJORN LAWSON Report Released Date/Time: Jun 06, 2023 03:02 PM Reporting Lab: [facility] [address] [facility] [address] Performing Lab: [facility] [address] [facility] [phone] [facility] CBC MONOCYTES/ 100 LEUKOCYTES IN BLOOD BY AUTOMATED COUNT 7 06/11 Specimen Type: BLOOD No comment entered. Ordering Provider: BJORN LAWSON Report Released Date/Time: Jun 06, 2023 03:02 PM Reporting Lab: [facility] [address] [facility] [phone] Performing Lab: [facility] [address] [facility] [address] [facility] CBC NEUTROPHIL S/100 LEUKOCYTES IN BLOOD BY AUTOMATED COUNT 68 06/11 Specimen Type: BLOOD No comment entered. Ordering Provider: BJORN LAWSON Report Released Date/Time: Jun 06, 2023 03:02 PM Reporting Lab: [facility] [address] [facility] [address] Performing Lab: [facility] [address] [facility] [address] [facility] CBC EOSINOPHIL S/100 LEUKOCYTES IN BLOOD BY AUTOMATED COUNT 3 06/11 Specimen Type: BLOOD No comment entered. Ordering Provider: BJORN LAWSNO Report Released Date/Time: Jun 06, 2023 03:02 PM Reporting Lab: [facility] [address] [facility] [address] Performing Lab: [facility] [address] [facility] [address] [facility] CBC BASOPHILS/ 100 LEUKOCYTES IN BLOOD BY AUTOMATED COUNT 1 06/11 Specimen Type: BLOOD No comment entered. Ordering Provider: BJORN LAWSON Report Released Date/Time: Jun 06, 2023 03:02 PM Reporting Lab: [address] [address] Performing Lab: [address] [phone] [place] [address] CBC LYMPHOCYTE S [#/VOLUME] IN BLOOD BY AUTOMATED COUNT 1.38 10*3/uL 0.77 - 4.50 06/11 Specimen Type: BLOOD No comment entered. Ordering Provider: BJORN LAWSON Report Released Date/Time: Jun 06, 2023 03:02 PM Reporting Lab: [address] [phone] Performing Lab: [address] [phone] [place] [address] CBC MONOCYTES [#/VOLUME] IN BLOOD BY AUTOMATED COUNT 0.44 10*3/uL 0.19 - 0.80 06/11 Specimen Type: BLOOD No comment entered. Ordering Provider: BJORN LAWSON Report Released Date/Time: Jun 06, 2023 03:02 PM Reporting Lab: [address] [phone] Performing Lab: [address] [phone] [facility] CBC NEUTROPHIL S [#/VOLUME] IN BLOOD BY AUTOMATED COUNT 4.37 10*3/uL 2.10 - 8.00 06/11 Specimen Type: BLOOD No comment entered. Ordering Provider: BJORN LAWSON Report Released Date/Time: Jun 06, 2023 03:02 PM Reporting Lab: [address] [address] Performing Lab: [address] [phone] CBC EOSINOPHIL S [#/VOLUME] IN BLOOD BY AUTOMATED COUNT 0.21 10*3/uL 0.00 - 0.60 06/11 Specimen Type: BLOOD No comment entered. Ordering Provider: BJORN LAWSON Report Released Date/Time: Jun 06, 2023 03:02 PM Reporting Lab: [place] [address] Performing Lab: [address] CBC BASOPHILS [#/VOLUME] IN BLOOD BY AUTOMATED COUNT 0.05 10*3/uL 0.00 - 0.20 06/11 Specimen Type: BLOOD No comment entered. Ordering Provider: BJORN LAWSON Report Released Date/Time: Jun 06, 2023 03:02 PM Reporting Lab: [place] [address] Performing Lab: [address] PROST. SPECIFIC AG.(PB-S TL) PROSTATE SPECIFIC AG [MASS/VOLU ME] IN SERUM OR PLASMA 3.807 ng/mL 0 - 4 06/08 Specimen Type: SERUM Comment: The listed sex of this patient may not be a typical indication for this test. Therefore, reference ranges or interpretiv e criteria listed may not be valid. Clinical correlation suggested. Ordering Provider: GLENDY SHARMA Report Released Date/Time: Jul 02, 2021 03:45 PM Reporting Lab: [place] [address] Performing Lab: [address] LIPID PANEL (STL) CHOLESTERO L [MASS/VOLU ME] IN SERUM OR PLASMA 168 mg/dL 0 - 200 06/08 Specimen Type: PLASMA No comment entered. Ordering Provider: RA ALINA PRICE Report Released Date/Time: Jun 08, 2022 09:31 AM Reporting Lab: [facility] [address] [facility] [address] Performing Lab: [facility] [address] [facility] [address] [facility] LIPID PANEL (STL) TRIGLYCERI DE [MASS/VOLU ME] IN SERUM OR PLASMA 66 mg/dL 0 - 150 06/08 Specimen Type: PLASMA No comment entered. Ordering Provider: RA ALINA PRICE Report Released Date/Time: Jun 08, 2022 09:31 AM Reporting Lab: [facility] [address] [facility] [address] Performing Lab: [facility] [address] [facility] [address] [facility] LIPID PANEL (STL) CHOLESTERO L IN LDL [MASS/VOLU ME] IN SERUM OR PLASMA BY CALCTRUNG N 103 mg/dL 06/08 Specimen Type: PLASMA No comment entered. Ordering Provider: RA ALINA PRICE Report Released Date/Time: Jun 08, 2022 09:31 AM Reporting Lab: [place] [address] [facility] [address] Performing Lab: [place] [address] [address] [facility] [address] [facility] LIPID PANEL (STL) CHOLESTERO L IN HDL [MASS/VOLU ME] IN SERUM OR PLASMA 52 mg/dL 40 06/08 Specimen Type: PLASMA No comment entered. Ordering Provider: RA ALINA PRICE Report Released Date/Time: Jun 08, 2022 09:31 AM Reporting Lab: [place] [address] [address] [facility] [address] Performing Lab: [place] [address] [facility] [address] [facility] Vital Signs Combined list of inpatient and outpatient Vital Signs from Department of Defense and Veterans Affairs, ranging from 12 months to all on record, depending upon the facility. Vital Sign Value Date Comments Source SYSTOLIC BLOOD PRESSURE 149 12/11/19 24 10:07:49 [facility] DIASTOLIC BLOOD PRESSURE 81 10:07:49 [facility] PULSE 77 12/11/2023 10:07:49 [facility] SYSTOLIC BLOOD PRESSURE 132 06/21/19 24 15:33:44 [facility] DIASTOLIC BLOOD PRESSURE 85 024 15:33:44 [facility] PULSE OXIMETRY 96 06/21/2023 15:33:44 [facility] WEIGHT 187.8 06/21/2023 15:33:44 [facility] BMI 24 kg/m2 06/21/2023 15:33:44 [facility] PAIN 3 06/21/2023 15:33:44 [facility] TEMPERATURE 97.7 06/21/2023 15:33:44 [facility] PULSE 70 06/21/2023 15:33:44 [facility] RESPIRATION 18 06/21/2023 15:33:44 [facility] SYSTOLIC BLOOD PRESSURE 134 06/12/19 24 09:42:07 [facility] DIASTOLIC BLOOD PRESSURE 93 024 09:42:07 [facility] PULSE OXIMETRY 94 06/12/2023 09:42:07 [facility] WEIGHT 187 06/12/2023 09:42:07 [facility] BMI 24 kg/m2 06/12/2023 09:42:07 [facility] TEMPERATURE 97.5 06/12/2023 09:42:07 [facility] PULSE 80 06/12/2023 09:42:07 [facility] RESPIRATION 18 06/12/2023 09:42:07 [facility] Encounters Combined list of: 1) Encounters from Department of Veterans Affairs facilities going backup to the last 18 months, not all VA inpatient encounters are included; 2) Encounters from the Department of Defense facilities going backup to 280 months. Location Location Details Encounter Type Encounter Number Reason For Visit Attending Provider ADM Date DC Date Status Disposition Source [address] [place] [address] [facility] ANDRADE [place] [place] Medicine [place] OUTPATIENT [id number] 49y/o male, no fast, glasses , no waivers YIN FLORES 09/16 Released w/o Limitations [employer] [facility] Flight Medicin e Tm[facility] [employer] [facility] Flight Medicine ) OUTPATIENT [id number] flu shot VIVHELADIO Tammie 01/24 Released w/o Limitations [employer] [facility] Flight Medicin e Tm) [employer] [facility] Flight Medicine ) OUTPATIENT [id number] 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; 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 HELADIO NAM 02/21 Released w/o Limitations [employer] [facility] Flight Medicin e Tm) [facility] Leticia Rodriguez MD(IEP Hearing Conservat ion Exam) OUTPATIENT [id number] audiogr am for Flight francisco j CODY Snyder 07/08 Released w/o Limitations [facility] Leticia Rodriguez MD(IEP Hearing Conserv ation Exam) [facility] Agustina Rodriguez MD(Optome try) OUTPATIENT [id number] AURORA MACKEY 07/08 [facility]ased w/[facility] Limitations [facility](Aviati on Med PC) OUTPATIENT [id number] FLT PHY/CLA SS 2 INITIAL SHEETSOLY 07/08 Released w/o Limitations [facility] Agustina Rodriguez MD(Avia tion Med PC) [facility]car [facility]RADE [facility] Fam Res Tm Red) OUTPATIENT [id number] Medical Right Start VASU PEÑA 11/18 Released w/o Limitations [employer] [facility] ANRDADE [facility] Fam Res Tm Red) [facility] DENTAL [id number] PRO CLINT TRINIDAD 11/20 [employer] [facility]D ental Clinic) [employer] [facility]Aud iology) OUTPATIENT [id number] Hearing test WESTLEY TIRADO 01/26 Released w/o Limitations [employer] [place] [place]A udiolog y[place] [employer] [place] [place] Flight Medicine Tm) OUTPATIENT [id number] [place]. neck/ar m pain ELANA WHITE 02/06 Released w/o Limitations [employer] [place] [place] cott Flight Medicin e Tm) [employer] [place] [place]Phy sical Therapy) OUTPATIENT [id number] CERVICA LGROSA ACEVEDO 02/18 Released w/o Limitations [employer] [place] [place]P hysical Therapy ) [employer] [place] [place]Phy sical Therapy) OUTPATIENT [id number] LILIAN SHEA 02/23 Released w/o Limitations [employer] ([facility] [place]P hysical Therapy ) [employer] ([facility] [place] Medicine ) TELE CONSULT [id number] KEVIN Coto 03/02 [employer] ([facility] [place] cott Flight Medicin e Tm) [employer] ([facility] [place]Phy sical Therapy[place] OUTPATIENT [id number] LILIAN SHEA 03/10 Released w/o Limitations [employer] ([facility] [place]P hysical Therapy ) [facility] [employer] [place] [place]Phy [place]ical Therapy) OUTPATIENT [id number] PRABHJOT GERBER 03/13 Released w/o Limitations [employer] ([facility] [place] hysical Therapy [place] [facility] [employer] ([facility] [place] Medicine ) TELE CONSULT [id number] GEOVANNI MAK 04/03 [employer] [place] [place] cott Flight Medicin e Tm) [facility] [employer] ([facility] [place] Medicine ) OUTPATIENT [id number] S.[place] neck pain LEANA WHITE 04/30 Released w/o Limitations [employer] [place] [place] cott Flight Medicin e Tm) [employer] [place] [place] Medicine ) OUTPATIENT [id number] S.C. sleepin g pills MICHELLE DILLON S 05/05 Released w/o Limitations [employer] [place] [place] Flight Medicin e Tm) [employer] [place] [place]Opt ometry[place] OUTPATIENT [id number] eye exam SRAVANTHI ALICEA 05/22 Released w/o Limitations [employer] ANDRADE ([facility] [place]O ptometr y) [facility] [employer] ([facility] [place] Medicine ) TELE CONSULT [id number] PT referra l for chronic neck pain MICHELLE DILLON S 07/09 [employer] [facility] ([facility] [place] cott Flight Medicin e Tm) [facility] [employer] ANDRADE ([facility] [place] ) OUTPATIENT [id number] KEVIN Menchaca 07/10 Released w/o Limitations [employer] [facility] ([facility] [place] cott Flight Medicin e Tm) [facility] [employer] ANDRADE [place] [place]Opt [place]metry[place] OUTPATIENT [id number] SRAVANTHI ALICEA 07/30 Released w/o Limitations [employer] ([facility] [place]O ptometr y) [facility] [employer] ([facility] [place] ) TELE CONSULT [id number] Med Renewal Request SRAVANTHI CHRISTIANSON 08/25 [employer] ANDRADE ([facility] [place]S cott Flight Medicin e Tm) [facility] [employer] [facility] ([facility] [place] Medicine ) OUTPATIENT [id number] 54y/o male glasses no wx [id number] LINDA ALMONTE 09/25 Released w/o Limitations [employer] ([facility] [place] cott Flight Medicin e Tm) [employer] ([facility] [place] Medicine ) TELE CONSULT [id number] Physica l Med/Uyen ab Referra l AGUSTINA Lilly 10/09 Referred for Appointment [employer] [place] [place] cott Flight Medicin e Tm) [facility] [employer] [place] ([facility] [place] ) TELE CONSULT [id number] Waiver update KEVIN AGUILAR R 12/08 Referred for Appointment [employer] [place] ([facility] [place] cott Flight Medicin e Tm) [employer] ANDRADE ([facility] [place] Medicine ) TELE CONSULT [id number] Med refKEVIN Nguyen R 12/23 Referred for Appointment [employer] [place] [place] cott Flight Medicin e Tm) [employer] [place] [place] [place] Medicine ) OUTPATIENT [id number] [place]. twisted left ankle BELINDA MEDINA R 12/30 Released w/o Limitations [employer] [place] [place] cott Flight Medicin e Tm) [employer] [place] [place]) OUTPATIENT [id number] left ankle pain, update profile BELINDA MEDINA R 02/01 Released with Work/Duty Limitations [employer] [facility]RADE [place] [place] cott Flight Medicin e Tm) [employer] [place] [place]) TELE CONSULT [id number] KEVIN Casarez R 02/04 Referred for Appointment [employer] [facility] ([facility] [place] cott Flight Medicin e Tm) [employer] [place] [place]) TELE CONSULT [id number] KEVIN Casarez R 02/10 Referred for Appointment [employer] [place] [place] cott Flight Medicin e Tm) [employer] [place] [place] Medicine ) OUTPATIENT [id number] mole removal /madhu paperMICHELLE Segundo 04/12 Released w/o Limitations [employer] [place] [place] [place] cott Flight Medicin e Tm) [employer] [place] [place] [place] Medicine ) OUTPATIENT [id number] F/U BELINDA MEDINA R 04/19 Released w/o Limitations [employer] [place] [place]S cott Flight Medicin e Tm) [employer] [place] [place] [place] Medicine ) OUTPATIENT [id number] [place]. thumb injury GEOVANNI MAK Amira 06/10 Released w/o Limitations [employer] ([facility] [place] cott Flight Medicin e Tm) [facility]Opt ometry[place] OUTPATIENT [id number] eye exam [id number] [place] Hermelinda Trinh 07/01 Released w/o Limitations [employer] [facility] ([facility] [place]O ptometr y) [facility] [employer] Medicine ) OUTPATIENT [id number] f/u foot pain MARCELINO LAWRENCE 07/19 Released w/o Limitations [employer] [facility]S [employer] Medicin e Tm) [facility]) OUTPATIENT [id number] shoulde r pain MARCELINO LAWRENCE 09/16 Released w/o Limitations [employer] [facility] ([facility] [place]S [employer] e ) [facility] ADNRADE [facility]) TELE CONSULT [id number] abn MRI shoulde r RESHMA LOGAN 09/28 [facility] ANDRADE [facility] ) [facility]car ANDRADE [facility]) TELE CONSULT [id number] KEVIN Concepcion 10/04 Referred for Appointment [facility]car ANDRADE [facility] [employer] [facility] ) [facility] [place] [place] [place] OUTPATIENT [id number] F/U SHOULDE R PAIN MARCELINO LAWRENCE 10/12 Released w/o Limitations [facility] Amilcar BENJAMÍNB [facility] [employer] [facility]) [facility] Amilcar BUTTSB [facility]) TELE CONSULT [id number] blood in urine RESHMA LOGAN 10/12 [facility] [place]RADE [place] [place] [facility]) [facility] Amilcar ANDRADE [facility] ) TELE CONSULT [id number] abn MRI- left shoulde r RESHMA LOGAN 10/15 [facility] [facility] [employer] [facility]) [facility]B [place] [place] ) OUTPATIENT [id number] Exit MARCELINO Leonard 10/21 Released w/o Limitations [facility]car [facility]TSB [place] [place]) [facility] Am[facility]car BUT[place]B [facility] Tm) TELE CONSULT [id number] Tracyra KEVIN Katz 11/17 Referred for Appointment [facility]car [place]TSB ([facility] [place]) [facility]TSB ([facility] [place] ) TELE CONSULT [id number] request for MELONIE Pulliam 12/27 [facility] ([facility] [place]) [facility] ([facility] [place] ) OUTPATIENT [id number] Flight MARY Marques 12/28 Released w/o Limitations [facility]car [facility]B ([facility] [place]) [facility]car BUT[place] [facility] ) TELE CONSULT [id number] Renew RESHMA Thorne 01/21 [facility] [place] [place]) [facility]car [place] [facility] ) OUTPATIENT [id number] S.C. injured shoulde r last night MELONIE COOK 04/01 Released w/o Limitations [facility]car [place] [facility]) [facility]car [place] [facility] Tm) OUTPATIENT [id number] SEPARAT ION MARCELINO LEONARD 04/06 Released w/o Limitations [facility]car [place]B [place] [place]) [facility] Outpatient Encounter [id number] 02/08 [facility] En[facility] [id number] 05/18 [facility] OFFICE O/P EST LOW 20 MIN [id number] Diagnos is: ICD-10- CM N40.1 Benign prostat ic hyperpl yinka with lower urinary tract symp ROB VILLAR IS J 06/11 [facility] Outpatient Encounter [id number] 06/11 [facility] Outpatient Encounter [id number] ROB VILLAR IS J 06/11 [facility] Outpatient Encounter [id number] SARA HALEY L 06/12 [facility] Outpatient Encounter [id number] 06/20 [facility] OFFICE O/P EST MOD 30 MIN [id number] Diagnos is: ICD-10- CM N40.0 Benign prostat ic hyperpl yinka without lower urinry tract symp THAO LAWSON MMAD T 06/20 [facility] Outpatient Encounter [id number] 10/25 [facility] CASE MANAGEMENT [id number] Diagnos is: ICD-10- CM Z71.9 Financial Coach ing, unspeci ROBINSON Chin 10/25 [facility] Outpatient Encounter [id number] 11/26 [facility] O/P EST MOD 30 MIN [id number] Diagnos is: ICD-10- CM M48.02 Spinal stenosi s, cervica l region THAO LAWSON MMAD T 12/10 [facility] Outpatient Encounter [id number] 03/18 [facility] Outpatient Encounter [id number] 03/18 [facility] Outpatient Encounter [id number] 03/22 [facility] Procedures Combined list of: 1) Procedures from Department of Veterans Affairs facilities going back up to thelast 18 months, not all [place] non-surgical procedures are included; 2) All procedures from the Department of Defense facilities. Procedure Procedure Type Code Date Perfomer Comments Sourc e No data available for this section [facility] COMPUTERIZED CORNEAL TOPOGRAPHY, UNILATERAL 2004 [employer] OPHTHALMOLOGICAL SERVICES: MEDICAL EXAMINATION AND EVALUATION WITH INITIATION OF DIAGNOSTIC AND TREATMENT PROGRAM; COMPREHENSIVE, NEW PATIENT, 1 OR MORE VISITS 2008 DoD SPECIAL REPORTS SUCH INSURANCE FORMS, MORE THAN THE INFORMATION CONVEYED IN THE USUAL MEDICAL COMMUNICATIONS OR STANDARD REPORTING FORM 2008 DoD PURE TONE AUDIOMETRY (THRESHOLD); AIR ONLY 2010 DoD FITTING OF SPECTACLES, EXCEPT FOR APHAKIA; BIFOCAL 2010 DoD SHAVING OF EPIDERMAL OR DERMAL LESION, SINGLE LESION, TRUNK, ARMS OR LEGS; LESION DIAMETER 1.1 TO 2.0 CM 2010 DoD TELE ASSESS & MGT SRV PROV QUAL NONPHYS HLTH CARE PRO TO EST PAT,PARENT,GUARD NOT ORIG REL ASSESS & MGT SRV PROV W/IN PREV 7 DAYS NOR LEAD ASSESS & MGT SRV/PX W/IN NXT 24 HR/SOON APT;5-10 MIN MED DIS 2009 [facility] OPHTHALMIC ULTRASOUND, ECHOGRAPHY, DIAGNOSTIC; CORNEAL PACHYMETRY, UNILATERAL OR BILATERAL (DETERMINATION OF CORNEAL THICKNESS) 2009 [employer] [employer] DETERMINATION OF REFRACTIVE STATE 2009 DoD APPLICATION OF A MODALITY TO 1 OR MORE AREAS; HOT OR COLD PACKS 2009 DoD APPLICATION OF A MODALITY TO 1 OR MORE AREAS; HOT OR COLD PACKS 2009 DoD APPLICATION OF A MODALITY TO 1 OR MORE AREAS; TRACTION, MECHANICAL 2008 DoD APPLICATION OF A MODALITY TO 1 OR MORE AREAS; TRACTION, MECHANICAL 2008 DoD FILTERED SPEECH TEST 2008 [employer] TETANUS TOXOID ADSORBED, FOR INTRAMUSCULAR USE 2005 [employer] VIS FUNCT SCREEN,AUTOMAT/SEMI -AUTOMAT BILAT QUANT DETERM VISUAL ACUITY,OCULAR ALIGN,COLOR VISION,PSEUDOISOCHR OMAT PLATES,& FIELD VIS (MAY INC ALL/SOME SCRN DETERM FOR CONTRAST SENSITIV,VIS UND GLARE) 2004 [employer] IMMUNIZATION ADMINISTRATION (INCLUDES PERCUTANEOUS, INTRADERMAL, SUBCUTANEOUS, OR INTRAMUSCULAR INJECTIONS); 1 VACCINE (SINGLE OR COMBINATION VACCINE/TOXOID) 2004 [employer] [employer] SCREENING TEST OF VISUAL ACUITY, QUANTITATIVE, BILATERAL 2004 [employer] DETERMINATION OF REFRACTIVE STATE 2004 [employer] UNLISTED SPECIAL SERVICE, PROCEDURE OR REPORT 2004 [employer] COMPUTERIZED CORNEAL TOPOGRAPHY, UNILATERAL 2004 [employer] DETERMINATION OF REFRACTIVE STATE 2003 DoD APPLICATION OF A MODALITY TO 1 OR MORE AREAS; TRACTION, MECHANICAL 2002 [employer] [employer] PHYSICAL THERAPY RE-EVALUATION 2002 DoD APPLICATION OF A MODALITY TO 1 OR MORE AREAS; TRACTION, MECHANICAL 2002 DoD APPLICATION OF A MODALITY TO 1 OR MORE AREAS; TRACTION, MECHANICAL 2002 DoD APPLICATION OF A MODALITY TO 1 OR MORE AREAS; TRACTION, MECHANICAL 2002 DoD APPLICATION OF A MODALITY TO 1 OR MORE AREAS; TRACTION, MECHANICAL 2002 DoD APPLICATION OF A MODALITY TO 1 OR MORE AREAS; TRACTION, MECHANICAL 2002 DoD APPLICATION OF A MODALITY TO 1 OR MORE AREAS; TRACTION, MECHANICAL 2002 [employer] EDUCATIONAL SUPPLIES, SUCH BOOKS, TAPES, AND PAMPHLETS, FOR THE PATIENT'S EDUCATION AT COST TO PHYSICIAN OR OTHER QUALIFIED HEALTH STAFF NUCLEAR MEDICINE TECHNOLOGIST 2002 [employer] Electrocardiogram Electrocardiogram 35536 12/28 WYNMARY JACOB Threshold Audiogram (Pure Tone) Threshold Audiogram (Pure Tone) 70504 2010 MARY VERMA Visual Function Screening Visual Function Screening 86233 2010 MARY VERMA Spectacles Services Fitting Bifocal Except For Aphakia Spectacles Services Fitting Bifocal Except For Aphakia 87093 2010 DENENE ARROYO Determination Of Refractive State Determination Of Refractive State 94077 2010 DENEEN ARROYO Ophthalmological Prior Patient Start Comprehensive Care Ophthalmological Prior Patient Start Comprehensive Care 49572 2010 DENEEN ARROYO Shaving Of Lesion Trunk 1.1 to 2cm Shaving Of Lesion Trunk 1.1 to 2cm 39429 2010 BELINDA MEDINA Audiogram (Screening) Audiogram (Screening) 80588 2009 LINDA ALMONTE Tonometry Tonometry 99362 2009 LINDA ALMONTE Screening Test Of Visual Acuity, Quantitative, Bilateral Screening Test Of Visual Acuity, Quantitative, Bilateral 53702 2009 LINDA ALMONTE Extensive Color Vision Testing Extensive Color Vision Testing 84751 2009 LINDA ALMONTE Visual Function Screening Visual Function Screening 25689 2009 LINDA ALMONTE Non-Physician Phone Call To Patient/Provider Brief (5-10min) Non-Physician Phone Call To Patient/Provider Brief (5-10min) 09149 2009 SRAVANTHI CHRISTIANSON Determination Of Refractive State Determination Of Refractive State 25597 2009 SRAVANTHI ALICEA Computerized Corneal Topography Computerized Corneal Topography 22871 2009 SRAVANTHI ALICEA Corneal Pachymetry, Bilateral With Interpret And Report Corneal Pachymetry, Bilateral With Interpret And Report 48514 2009 SRAVANTHI ALICEA Ophthalmological Prior Patient Start Comprehensive Care Ophthalmological Prior Patient Start Comprehensive Care [id number] SRAVANTHI ALICEA Corneal Pachymetry, Bilateral With Interpret And Report Corneal Pachymetry, Bilateral With Interpret And Report 81978 2009 SRAVANTHI ALICEA CCT 599 and 596 --ok for either PRK or LASIK [employer] Computerized Corneal Topography Computerized Corneal Topography 01153 2009 SRAVANTHI ALICEA normal both eyes --passes for CRS [employer] Determination Of Refractive State Determination Of Refractive State 79535 2009 SRAVANTHI ALICEA Ophthalmological Prior Patient Start Comprehensive Care Ophthalmological Prior Patient Start Comprehensive Care 72808 2009 SRAVANTHI ALICEA Modalities Traction Modalities Traction 24550 0 2009 PRABHJOT GERBER Modalities Heat Hot Packs Modalities Heat Hot Packs 65230 2009 PRABHJOT GERBER Physical Therapy: ___ Se ion Segments, 15 Minutes Each Physical Therapy: ___ Session Segments, 15 Minutes Each 09415 2009 PRABHJOT GERBER Physical Therapy: ___ Se ion Segments, 15 Minutes Each Physical Therapy: ___ Session Segments, 15 Minutes Each 38644 2009 LILIAN SHEA Modalities Heat Hot Packs Modalities Heat Hot Packs 75002 2009 LILIAN SHEA Modalities Traction Modalities Traction 11888 0 2009 LILIAN SHEA Modalities Traction Modalities Traction 65653 1 2008 LILIAN SHEA Modalities Traction Modalities Traction 22511 1 2008 ROSA POWERS Physical Therapy: ___ Se ion Segments, 15 Minutes Each Physical Therapy: ___ Session Segments, 15 Minutes Each 98619 2008 ROSA POWERS Physical Therapy Service Evaluation Physical Therapy Service Evaluation 12786 2008 ROSA POWERS Acoustic Reflex Decay Test Acoustic Reflex Decay Test 86821 2008 WESTLEY TIRADO Acoustic Reflex Testing 2008 WESTLEY TIRADO Audiologic Impedance Testing Audiologic Impedance Testing 75334 2008 WESTLEY TIRADO Filtered Speech Test Filtered Speech Test 36124 2008 WESTLEY TIRADO Evoked Otoacoustic Mayte ions Comprehensive 2008 WESTLEY TIRADO Comprehensive Audiometry Comprehensive Audiometry 19524 2008 WESTLEY TIRADO Physician Services Special Review / Reporting Of Patient Status Physician Services Special Review / Reporting Of Patient Status 39642 2008 CODY LUGO Audiometry Group Testing Audiometry Group Testing 61764 2008 CODY LUGO Ophthalmological New Patient Start Comprehensive Care Ophthalmological New Patient Start Comprehensive Care 77421 2008 AURORA MACKEY Visual Function Screening Visual Function Screening 66951 2008 AURORA MACKEY Determination Of Refractive State Determination Of Refractive State 46808 2008 AURORA MACKEY Immunization Administration By Injection, One Vaccine Immunization Administration By Injection, One Vaccine 44418 2005 HELADIO NAM Influenza Split Virus Vaccine 0.5mL Dosage Intramuscular 2005 HELADIO NAM Audiogram (Screening) Audiogram (Screening) 17868 2004 HELADIO NAM Visual Function Screening Visual Function Screening 61356 2004 HELADIO NAM Tonometry Tonometry 90356 2004 YIN FLORES Screening Test Of Visual Acuity, Quantitative, Bilateral Screening Test Of Visual Acuity, Quantitative, Bilateral 38595 2004 YIN FLORES Visual Latham Test Limited Examination Visual Latham Test Limited Examination 93318 2004 YIN FLORES Audiogram (Screening) Audiogram (Screening) 08576 2004 YIN FLORES Social History Combined list of available smoking, tobacco, and other social history from Department of Defense and Veterans Affairs facilities. Social History Type Response Date Comment Sour e Tobacco smoking status [facility] VA-TOBACCO NEVER USED 06/21/2023 [facility] History of tobacco use VA-TOBACCO NEVER USED 02/11/2021 [facility] History of tobacco use IN-TOBACCO NEVER USED 04/25/2019 [facility] History of tobacco use LIFETIME NON-USER OF TOBACCO 08/12/[facility] History of tobacco use LIFETIME NON-USER OF TOBACCO 01/02/2015 [facility] History of tobacco use LIFETIME NON-USER OF TOBACCO 10/31/2013 [facility] History of tobacco use LIFETIME NON-USER OF TOBACCO 09/12/2012 [facility] History of tobacco use LIFETIME NON-USER OF TOBACCO 11/10/2006 [facility] This section is an empty social history section. DoD Assessment and Plan Combined list of future care activities from Department of Defense and Veterans Affairs facilities (e.g., assessment and plan notes, appointments, orders, and referrals). Additional future care activities may be listed in the Plan of Care section. Result Assessment and Plan Date Source Assessment and Plan No data available for this section 04/29/2024 Ambulatory Pharmacy Plan of Care List of future care activities from Department of [facility] facilities. Additional future care activities may be listed in the Assessment and Plan section. Date/Time Care Activity Care Activity Detail Facili ty 05/30/2024 AMBULATORY - NONE AMBULATORY - NONE [facility] 07/09/2024 AMBULATORY - MEDICINE AMBULATORY - MEDICI [facility] 03/18/2024 Consult Order [facility]ITY [facility]-S TL DENTAL GEN Cons Nutrition Associate's Choice [facility] Advance Directives List of completed, amended, or rescinded Advance Directives on record at Department of Veterans [facility] facilities. An actual copy of the Directive is not included. Date Advance Directive Provider Source 08/12/2016 ADVANCE DIRECTIVE DISCUSSION TINA CHAN [facility] Functional Status Combined list of recent functional and cognitive assessments recorded at Department of Defense and Veterans Affairs (VA).VA Functional [place] Measurement (FIM) Scale: 1 = Total Assistance (Subject = 0% +), 2 = Maximal Assistance (Subject = 25% +), 3 = Moderate Assistance (Subject = 50% +), 4 = Minimal Assistance (Subject = 75% +), 5 = Supervision, 6 = Modified Middleton (Device), 7 = Complete Middleton (Timely, Safely). Assessment Date/Time Source Assessment Type Assessment Skill Assessment Score Assessment Details No data available for this section
--- OUTSIDE RECORDS SUMMARY | 2024-04-29 07:43 | XMS_ITS | Continuity of Care Document ---
Author Organization [employer] [facility] [place] [address]ieves [address] [place] [address] Phone Care Team Providers Care Ore Mixer Name Role Phone Randi OD OD, Wilman [...] Date Post-op Follow-up Visit TF Polycarb Sph [place] +/-4d Post-op Follow-up Visit Post-op Follow-up Visit Post-op Follow-up Visit Post-op Follow-up Visit Post-op Follow-up Visit Comanaged Refractive Fee ([facility]) 14 Comanaged Refractive Fee ([facility]) 14 No Charge Refractive Evaluation No Charge Refractive Evaluation 014 Refractive Evaluation Advance Directives Directive Yes / No Effective Date File Name No Information Encounters Encounter Description Practice Location Reason(s) For Visit Diagnoses Date Provider Providers Copied on Encounter [facility], [address] [place] [address] [address], [place], [place], [address], [place] tel:[phone] [facility] No Information Randi SHERIFF Wilman. [address] [place], [place], [address], [place]. tel:[phone] Referring Provider: Wilman Bryan OD P, [address] [place], [address] . tel:[phone] [facility], [address] [place] [address] [address], [place], [place], [address], [place] tel:[phone] [facility] No Information [employer] . [address], [address], [place], [place], [address], [place]. tel:[phone] Referring Provider: Wilman Bryan OD P, [address] [place], [address] . tel:[phone] sulting Provider: Genevieve Watkins, [address] [facility], [place], [address]. [facility], [address] [place] [address] [address], [place], [place], [address], [place] tel:[phone] [facility] No Information Randi SHERIFF Wilman. [address], [place], [address], [place]. tel:[phone] Referring Provider: Wilman Bryan OD P, [address] [place], [address] . tel:[phone] [facility], [address], [place], [place], [address], [place] tel:[phone] [facility] 1 month post-op PRK OU (chief complaint) Post-op follow-up Farhana OD Morales. [address] [facility], [address], [place], [address], [place]. tel:[phone] Referring Provider: Wilman Bryan OD P, [address] [facility], [place], [address] . tel:[phone] [facility], [address], [place], [place], [address], [place] tel:[phone] [facility] Blurry vision (chief complaint) Post-op follow-up Randi OD Wilman. [address], [place], [address], [place]. tel:[phone] Referring Provider: Wilman Bryan OD P, [address] [facility], [place], [address] . tel:[phone] [facility], [address], [place], [place], [address], [place] tel:[phone] [facility] Blurry vision (chief complaint) Post-op follow-up Nyasiay OD Wilman. [address], [place], [address], [place]. tel:[phone] Referring Provider: Wilman Bryan OD P, [address] [place], [address] . tel:[phone] [facility], [address], [place], [place], [address], [place] tel:[phone] [facility] 1 Day PRK OU PO (chief complaint) Post-op follow-up Mulqueeny OD Wilman. [address], [place], [address], [place]. tel:[phone] Referring Provider: Wilman Popeyetonia OD P, [address] [facility], [place], [address] . tel:[phone] [facility], [address], [place], [place], [address], [place] tel:[phone] [facility] No Information Popeyeeny OD Wilman. [address], [place], [address], [place]. tel:[phone] [facility], [address], [place], [place], [address], [place] tel:[phone] [facility] MYOPIA Nyasiay OD Wilman. [address], [place], [address], [place]. tel:[phone] Referring Provider: Wilman Bryan OD P, [address] [place], [address] . tel:[phone] [facility], [address], [place], [place], [address], [place] tel:[phone] [facility] MYOPIA Nyasiay OD Wilman. [address], [place], [address], [place]. tel:[phone] Referring Provider: Wilman Bryan OD P, [address] [place], [address] . tel:[phone] [facility], [address], [place], [place], [address], [place] tel:[phone] [facility] No Information Randi Stovall. [address] [facility], [place], [id number], . tel:[phone] Referring Provider: Wilman Collier, [address] [facility], [place], [address] . tel:[phone] Family History Family Member Type Diagnosis Age At Onset No Information Payers Payer name Insurance type Covered green party ID Authoriza tion(s) No Information Social History [...]
--- OUTSIDE RECORDS SUMMARY | 2024-04-29 07:43 | XMS_ITS | Continuity of Care Document ---
Author Organization [facility] Address [address] [facility] [address] [place] [address] Phone Care Team Providers Care Partner Management Consultant Name Role Phone Ivan OD OD, Kia [...] route every day Not Available - Active Procedures Procedure Date OFFICE/OUTPATIENT VISIT, EST [...] [facility] OFFICE/OUTPATIENT VISIT, NEW OPHTHALMIC BIOMETRY RT DILATED EXAM RIGHT EYE DILATED EXAM LEFT EYE Advance Directives Directive Yes / No Effective Date File Name No Information Encounters Encounter Description Practice Location Reason(s) For Visit Diagnoses Date Provider Providers Copied on Encounter OFFICE/OUTPA TIENT VISIT, [facility], [address] [place] [address], [id number], tel:[phone] Oph Consult [facility] Office discharge from eye (chief complaint) Bacterial conjunctivitis of left eyeKeratitis sicca, bilateralPseud ophakia of both eyes 7 Derheimer OD Kia. [address], [address], [place], [place], [id number], [place]. tel:[phone] Referring Provider: Bandar Collier, [address], [place], [place], [id number]. tel:[phone] [facility], [address] [place] [address], [id number], tel:[phone] [facility] No Information Juan Portillo. [address], [address], [place], [place], [id number], [place]. tel:[phone] Referring Provider: Bandar Collier, [address], [place], [place], [id number]. tel:[phone] OFFICE/OUTPA TIENT VISIT, [facility], [address] [place] [address], [id number], tel:[phone] [facility] CONSULT SHANIQUA CLAIRE blurry vision (chief complaint) PseudoaphakiaO ther vitreous opacities, bilateralPCO (posterior capsular opacification) , leftVitreous degeneration, left eyeKeratoconju nct sicca, not specified as Sjogren's, bilateral 7 Derheimer OD Kia. [address], [address], [place], [place], [id number], [place]. tel:[phone] Referring Provider: Kia Love OD, [address], [place], [place], [id number]. tel:[phone] OFFICE/OUTPA TIENT VISIT, [facility], [address] [place] [address], [id number], tel:[phone] Oph Consult [facility] Office Physician Directed follow up PVD (chief complaint) Vitreous degeneration, left eyePCO (posterior capsular opacification) , leftOther vitreous opacities, bilateralPseud oaphakia 7 Derheimer OD Kia. [address], [address], [place], [place], [id number], [place]. tel:[phone] Referring Provider: Bandar Martinez MD P, [address], [place], [place], [id number]. tel:[phone] OFFICE/OUTPA TIENT VISIT, [facility], [address] [place] [address], [id number], [place] tel:[phone] OPH CONSULT SHANIQUA CLAIRE flashes (chief complaint)fl oater (chief complaint) PseudoaphakiaP CO (posterior capsular opacification) , leftOther vitreous opacities, bilateralVitre ous degeneration, left eye 6 Derheimer OD Kia. [address], [address], [place], [place], [id number], [place]. tel:[phone] Referring Provider: Kia Love OD, [address], [place], [place], [id number]. tel:[phone] [facility], [address] [place] [address], [id number], tel:[phone] OPH CONSULT SHANIQUA CLAIRE feels clicking when he looks down and back OD (chief complaint)sm ear in vision moves around,distr acting OD (chief complaint)as tig. not improved OD (chief complaint)fe els clicking when he looks down and back (chief complaint)sm ear in vision moves around,distr acting (chief complaint)as tig. not improved (chief complaint) No Information 6 Juan Portillo. [address], [address], [place], [place], [address], [place]. tel:[phone] Referring Provider: Bandar Collier, [address], [place], [place], [address]. tel:[phone] [facility], [address] [place] [address], [id number], [place] tel:[phone] [facility] No Information 6 Juan Portillo. [address], [address], [place], [place], [id number], [place]. tel:[phone] Referring Provider: Bandar Collier, [address], [place], [place], [id number]. tel:[phone] [facility], [address] [place] [address], [id number], [place] tel:[phone] OPH CONSULT SHANIQUA CLAIRE blurry vision (chief complaint) Other secondary cataract, bilateralKerat oconjunct sicca, not specified as Sjogren's, bilateralOther vitreous opacities, bilateral Oct- 6 Juan Portillo. [address], [address], [place], [place], [id number], [place]. tel:[phone] Referring Provider: Bandar Collier, [address], [place], [place], [id number]. tel:[phone] [facility], [address] [place] [address], [id number], [place] tel:[phone] [facility] [place] No Information 6 Juan Portillo. [address], [address], [place], [place], [id number], [place]. tel:[phone] Referring Provider: Bandar Collier, [address], [place], [place], [id number]. tel:[phone] [facility], [address] [place] [address], [id number], tel:[phone] [facility] No Information 6 Juan Portillo. [address], [address], [place], [place], [address], [place]. tel:[phone] Referring Provider: Bandar Collier, [address], [id number]. tel:[phone] [facility], [address] [place] [address], [id number], tel:[phone] OPH CONSULT SH[facility]QUA CLAIRE No Information 6 Juan Portillo. [address], [address], [place], [place], [address], [place]. tel:[phone] Referring Provider: Bandar Collier, [address] [place] [address], [id number]. tel:[phone] OFFICE/OUTPA TIENT VISIT, [facility], [address] [place] [address], [id number], tel:[phone] OPH CONSULT SHANIQUA CLAIRE PRK enhancement (chief complaint) Keratitis sicca, bilateralOther vitreous opacities, bilateralAge-r elated nuclear cataract, right eyeDermatochal asis of left upper eyelidDermatoc halasis of right upper eyelidOther states following surgery of eye and adnexa 6 Juan Portillo. [address], [address], [id number], [place]. tel:[phone] Referring Provider: Bandar Collier, [address], [place], [place], [address]. tel:[phone] Family History Family Member Type Diagnosis Age At Onset Problem (finding) No family history of Di abetes mellitus Problem (finding) No family hist ory of Macular degeneration Problem (finding) No family history of Gl aucoma Problem (finding) No family history of Hy pertension Payers Payer name Insurance type Covered republican ID Authoriza tion(s) No Information Social History Type Description Quantity Date Captured Comments Alcohol Use Details Caffeine Use Details Tobacco Use Status No Information Smoking Status Never smoker Sex Male Chief Complaint And Reason For Visit From encounter dated '07/18/2016 13:05'. discharge from eye (chief complaint). Description: The [...] using At's prn and Restasis BID OU. Plan Of Treatment Date Type Action Status No Information History Of Present Illness Encounter [...] PRK OU. Blurry OU. 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 Ref by Dr. Wilman Bryan. Using Restasis bid OU. Instructions Date Instruction Additional Infor ferny Follow [...]
--- OUTSIDE RECORDS SUMMARY | 2024-04-29 07:43 | XMS_ITS | Clinical Summary ---
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
== END 2024-04-29 07:35 | disposition home or self-care (01) ==
PROVIDERS: Visit Provider Orthopaedic Surgery
DX: M25.511 Pain in right shoulder (principal); M25.512 Pain in left shoulder
CPT/HCPCS: 73030

== ENCOUNTER 2024-11-28 01:40 | Day surgery (SDC) | payer MEDICARE, OTHER, SELFPAY ==
--- NOTE | 2024-11-20 13:40 | PC.NURSE ---
Report to the Outpatient Waiting Room, entrance under the green pavilion located off [facility], at time __10AM____ on date ___11/28/24____. Planned Procedure Time: ___1200 NOON .? Time changes happen often and if your time is changed the preop area will call you the afternoon before. - You and your visitor will be asked to self-screen and do not enter if you have any COVID symptoms. Please call surgeon if you need to reschedule. - A mask is optional within the hospital at this time. Patients may have clear liquids (water, carbonated beverages, clear teas, apple juice) until 3 hours prior to surgery ( 9AM) with a maximum of 20 ounces. - No food from midnight until time of surgery and no smoking, or chewing tobacco (or any form of nicotine). No chewing gum, candy or mints. - Infants may have breast milk until 4 hours before surgery, infant formula 6 hours prior to surgery. - Children will be allowed to drink immediately following surgery.? If applicable, please bring a bottle or sippy cup to assist with drinking. Juice, water, soda, and popsicles are readily available.? For infants on formula, please bring formula the day of surgery.? Pacifiers are allowed. Take only the following medications with a SIP of water on the morning of surgery: NONE DO NOT STOP ANY OF YOUR OTHER PRESCRIPTION MEDICATIONS PRIOR TO SURGERY EXCEPT THE FOLLOWING Hold all vitamins and supplements for 3 days per anesthesiologist.LAST DOSE 11/24/[address] FAROOQ Please no make-up, nail anguillan, hairspray, perfume, deodorant, or body powder the day of surgery.? No jewelry (including any body piercings) or valuables the day of surgery, leave them at home.? Please take a shower or bath the night before, or the morning of, surgery with an antibacterial soap.? Wear comfortable, loose fitting clothing.? Children are encouraged to wear pajamas. - Jewelry must be removed prior to entering the operating room.? Rings and piercings that are not removed may be cut off. - The hospital will not accept responsibility for valuables.? - Please leave all valuables, including medications, at home the day of surgery. If you are going home after surgery, a licensed driver helper must drive you home.? - NO public transportation without another adult if you receive anesthesia. - We recommend that an adult stay with you for 24 hours following discharge. - We also recommend that you do not drive, make important decision, drink alcoholic beverages, or take any drugs that were not prescribed by your health care provider for at least 24 hours after your discharge time. For Pediatric surgeries, we recommend two adults accompany the child home. Follow any additional instructions given to you from your surgeon. Telephone instructions given to _PATIENT and asked if any additional questions and then verbalized understanding. Patient advised to call surgeon office or pre surgery nurse liaison [phone] if any additional questions.
[2024-11-20 13:50] VITALS: BMI 24.4
--- NOTE | 2024-11-26 15:15 | PM.IMHP ---
H&P: HPI History of Present Illness Date/Time: 11/26/24 15:15 Chief Complaint: Bilateral shoulder pain Narrative: 69-year-old with bilateral shoulder pain and prominence of the distal clavicle. Pain worse with activity and use of the arms, particularly overhead activity. Pain with lifting, pushing or pulling. Denies numbness or tingling. Treatment with anti-inflammatories, exercises and activity modification. Review of Systems Constitutional: Constitutional: Denies fever(s) Eyes: Eyes: Denies blurry vision ENT: Reports Normal hearing present Cardiovascular: Cardiovascular: Denies chest pain and Denies dyspnea Respiratory: Respiratory: Denies dyspnea and Denies wheezing Gastrointestinal: Gastrointestinal: Denies abdominal pain Genitourinary: Genitourinary: Denies urinary urgency Musculoskeletal: Musculoskeletal: Reports as per HPI and Denies numbness Integumentary/Breasts: Skin/Breast: Denies changing lesions and Denies sores Neurologic: Reports Normal hearing present, Denies behavioral changes, Denies confusion, Denies numbness and Denies convulsions Psychiatric: Psychiatric: Denies behavioral changes, Denies confusion and Denies hallucinations Endocrine: Endocrine: Denies heat intolerance Hematologic/Lymphatic: Hematologic/Lymphatic: Denies easy bleeding Allergic/Immunologic: Allergic/Immunologic: Denies wheezing PMFSH Past Medical History Medical History (Updated 11/26/24 @ 15:17 by Justin Olea MD) AC (acromioclavicular) arthritis Shoulder pain, bilateral Acromioclavicular arthrosis, bilateral SLAP (superior glenoid labrum lesion) Surgical History Surgical History History of foot surgery hallux rigidus x2 Family History Family History Mother Family history of lung cancer Alcoholism Sibling Family history of lung cancer Heart problem Father Cancer Heart problem Social History Social History Smoking status: Never smoker Alcohol intake: current Drinks per week: 4 Living arrangements: with family Spiritual care concerns: No Meds Home Medications and Allergies Home Medications ?Medication ?Instructions ?Recorded ?Confirmed ?Type aspirin 81 mg capsule 81 mg PO DAILY 11/20/24 11/20/24 History cyclosporine 0.05 % eye drops in a 1 drp EACH EYE Q12H 11/20/24 11/20/24 History dropperette (Restasis) multivitamin (Daily Multi-Vitamin 1 tablet PO DAILY 11/20/24 11/20/24 History tablet) omega 1-yzi-prh-fish oil 1,000 mg 1 cap PO DAILY 11/20/24 11/20/24 History (120 mg-180 mg) capsule (Fish Oil) turmeric 400 mg capsule 400 mg PO DAILY 11/20/24 11/20/24 History Allergies Allergy/AdvReac Type Severity Reaction Status Date / Time No Known Allergies Allergy Verified 11/20/24 13:35 Exam Const: General: healthy appearing; No in distress or confusion Orientation/consciousness: oriented to person, oriented to place, oriented to time and No confusion HENMT: Head: normal to inspection, normocephalic and atraumatic Eyes: Conjunctivae: conjunctivae normal Sclera: sclerae normal Neck: Neck: supple and nontender Resp: Effort & Inspection: normal respiratory effort and no audible wheezes Cardio: Rate: regular rate Rhythm: regular rhythm Skin: General skin exam: no rashes or lesions noted Neuro: General: oriented to person, oriented to place, oriented to time and No confusion Extrem: Right upper extremity: shoulder/upper arm tenderness over the biceps tendon, over the subacromial bursa and other ( Anterolateral acromion, anterior joint), axillary nerve sensory function normal, abnormal ROM pain with active ROM in ADduction and external rotation-, pain with passive ROM with ABduction and with internal rotation and with range as follows (FF 110, Abd 90, ER 50, IR L2) and other (RC 4/5, Bicep 4/5, Deltoid 5/5, ER 5/5); no swelling, elbow/forearm normal ROM; no tenderness and no swelling, wrist normal ROM and radial pulse present; no tenderness and Extremity exam: right hand neuromotor exam normal wrist extension normal, thumb opposition normal, thumb IP flexion normal and fingers 2-5 ABduction normal, neurosensory exam normal radial nerve sensory function normal, ulnar nerve sensory function normal, median nerve sensory function normal and digital nerve sensory function normal and vascular exam radial pulse present and normal capillary refill; no tenderness, no swelling and no crepitus Left upper extremity: normal to inspection, shoulder/upper arm inspection abnormal, tenderness of the A-C joint, of the proximal humerus, over the subacromial bursa and other (anterolateral acromion, gh joint), axillary nerve sensory function normal, abnormal ROM pain with active ROM in ABduction and in internal rotation, pain with passive ROM in internal rotation and external rotation- and with range as follows (FF 100, Abd 80, ER 30, IR hip) and other (RC 4/5, Bicep 4/5, Deltoid 5-/5, ER 4/5); no swelling, elbow/forearm normal ROM; no tenderness and no swelling, wrist normal ROM and radial pulse present; no tenderness and hand neuromotor exam normal Details: wrist extension normal and thumb IP flexion normal, neurosensory exam normal Details: radial nerve sensory function normal, ulnar nerve sensory function normal and median nerve sensory function normal, tendon exam normal Location: of all digits and vascular exam normal capillary refill; no tenderness Right lower extremity: normal to inspection Left lower extremity: normal to inspection Psych: Affect: normal affect Assessment and Plan Assessment and plan (1) Acromioclavicular arthrosis, bilateral: Code(s): M19.011 - Primary osteoarthritis, right shoulder; M19.012 - Primary osteoarthritis, left shoulder Status: Acute Assessment and Plan: Chief complaint bilateral shoulder pain and prominence. History, physical exam and radiographs reviewed with the patient. History of bilateral shoulder surgery with slap and rotator cuff repair. Has developed pain over the top of the right and left shoulder with prominence of the distal clavicle. AC joint arthritis on radiographs. Discussed the condition, nature, etiology and course of natural history with the patient. Treatment options including surgical and nonoperative treatment were reviewed. Risks and benefits of each as well as alternatives reviewed. The patient's questions were answered. Conservative treatment ice, Activity modification, anti-inflammatory supplements. patient desires operative treatment. Plan Discussed nonoperative and operative treatment options with the patient. Risks and benefits of each as well as alternatives were reviewed. All of the patient's questions were answered. The risks of surgery reviewed including but not limited to: Neurovascular damage, wound complication, infection, blood clot, pulmonary embolus, stroke, myocardial infarction, and anesthetic risks up to and including . Continued pain and possible dysfunction were explained. Specific risks of the procedure including later recurrence of deformity. No guarantees were offered. If hardware used, discussed risk of failure/ breakage and possible need for removal. If complications occur, the patient understands the need for further treatment, possible further surgery. Patient verbalizes understanding and wishes to proceed. PLAN: excision distal clavicle bilateral shoulders (2) Shoulder pain, bilateral: Qualifiers: Chronicity: chronic Qualified Code(s): M25.511 - Pain in right shoulder; M25.512 - Pain in left shoulder; G89.29 - Other chronic pain Code(s): M25.511 - Pain in right shoulder; M25.512 - Pain in left shoulder Status: Acute (3) AC (acromioclavicular) arthritis: Qualifiers: Laterality: left Qualified Code(s): M19.012 - Primary osteoarthritis, left shoulder Code(s): M19.019 - Primary osteoarthritis, unspecified shoulder Status: Acute
[2024-11-28] VITALS (8 sets, daily range): BP systolic 122–141; BP diastolic 68–83; PULSE 69–85; RESP 10–16; TEMP 36.3–36.6; O2SAT 98–100
--- OUTSIDE RECORDS SUMMARY | 2024-11-28 01:42 | XMS_ITS | Encounter Summary ---
Author Organization [facility] Address 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
[2024-11-28] MEDS: LACTATED RINGERS 1,000 ML 30 ML IV CONT ×2 (10:45→13:46)
--- NOTE | 2024-11-28 10:54 | WPDANESEPPF ---
Anes - Initial Pre Proc Eval Procedure: Operation Date: 11/28/24 12:00 Proposed Procedures p Bilateral Shoulder Distal Clavicle Excision - Justin Olea MD Date/Time: 11/28/24 10:54 Surgeon: Justin Olea MD Pre Op Diagnosis: bilateral shoulder ac joint arthritis Patient Data Age: 69 Gender: M Height: 1.83 m Weight: 83.9 kg Last Vital Signs Temp 36.6 C 11/28/24 10:00 Pulse 69 11/28/24 10:00 Resp 16 11/28/24 10:00 BP 125/83 11/28/24 10:00 Pulse Ox 98 11/28/24 10:00 O2 Del Method Room Air 11/28/24 10:00 Allergies Allergy/AdvReac Type Severity Reaction Status Date / Time No Known Allergies Allergy Verified 11/28/24 10:21 Home Medications ?Medication ?Instructions ?Recorded ?Confirmed ?Type aspirin 81 mg capsule 81 mg PO DAILY 11/20/24 11/28/24 History cyclosporine 0.05 % eye drops in a 1 drp EACH EYE Q12H 11/20/24 11/28/24 History dropperette (Restasis) multivitamin (Daily Multi-Vitamin 1 tablet PO DAILY 11/20/24 11/28/24 History tablet) omega 0-dwb-rjc-fish oil 1,000 mg 1 cap PO DAILY 11/20/24 11/28/24 History (120 mg-180 mg) capsule (Fish Oil) turmeric 400 mg capsule 400 mg PO DAILY 11/20/24 11/28/24 History Patient hx anesthesia problems: none Family hx anesthesia problems: none Results Review: All pre-operative results and documents have been reviewed as part of the pre-operative evaluation. [facility] Past Medical History Medical History AC (acromioclavicular) arthritis Shoulder pain, bilateral Acromioclavicular arthrosis, bilateral SLAP (superior glenoid labrum lesion) Surgical History Surgical History History of foot surgery hallux rigidus x2 Family History Family History Mother Family history of lung cancer Alcoholism Sibling Family history of lung cancer Heart problem Father Cancer Heart problem Social History Social History Smoking status: Never smoker Alcohol intake: current Drinks per week: 4 Anes - Eval Final PreProcedure Day of Procedure 11/28/24 10:54 Patient weight: normal Heart: regular rate and rhythm Lungs: clear to auscultation Airway: Mallampati scale class 1 Neurological: alert and oriented Last oral intake: >/= 8 hours ASA classification: II Emergent: no Anesthetic plan: proceed Anesthesia type and monitoring: general ETT and standard monitoring Results Review: All pre-operative results and documents have been reviewed as part of the pre-operative evaluation. Informed Consent: The patient's anesthetic plan and its attendant risks and benefits were discussed with the patient/family/POA. Questions were solicited and answers provided to the satisfaction of the patient/family/POA.
[2024-11-28] MEDS: ACETAMINOPHEN 500 MG TABLET 1000 MG PO (11:23)
[2024-11-28] MEDS: KETOROLAC 15 MG/ML VIAL (*BKC) IV PUSH (11:24)
--- NOTE | 2024-11-28 11:42 | WPDHPUPDATE1 ---
History and Physical Update Update Date/Time: 11/28/24 11:42 History and Physical has been reviewed, including an updated exam of the patient. There are NO changes in the patient's condition. Risks, benefits, and alternatives have been discussed and questions answered. Patient agrees to proceed with procedure.
[2024-11-28] MEDS: ceFAZolin 2 GM in SODIUM CHLORIDE 0.9% IV 50 ML 100 ML IVPB (11:59)
[2024-11-28] MEDS: BUPivacaine HCL 0.5% 10 ML AMP 40 ML INFILTRATE (12:29)
--- NOTE | 2024-11-28 14:05 | P.OP_ITS ---
Procedure Note - Detailed Date of Procedure 11/28/24 Pre-op Diagnosis bilateral shoulder ac joint arthritis Post-op Diagnosis Same Procedure Performed Bilateral distal clavicle excision Surgeon Justin Olea MD Architecture Analyst 1st lpn or medical assistant Anesthesia General Indications 69-year-old who has had previous bilateral shoulder surgeries and now has bilateral acromioclavicular arthrosis with bilateral distal clavicle exostosis and pain. Unrelieved conservative. Has difficulty with overhead activity and work. Presents now for operative treatment. Findings Large exostosis dorsum of the distal clavicle both right and left. Moderate degenerative changes AC joint bilaterally. Description of Procedure Patient identified in the preoperative holding. Informed consent given. Operative extremity marked. Patient received intravenous antibiotics. Patient brought to the operating room where underwent general anesthetic by anesthesia team. Positioned Beach chair on operating room table. Care was taken to secure the head neck and position the body with padding for the bony prominences. Time-out performed confirming the patient, site of the surgery and the plan. We addressed the right shoulder 1st. Right Shoulder then prepped and draped in usual sterile surgical fashion using a ChloraPrep skin solution. Local anesthetic with 0.5% Marcaine plain. Longitudinal incision made over the dorsum of the distal clavicle and AC joint with 15 blade. Hemostasis controlled electrocautery. Fascia incised in line skin incision. Periosteum, capsule and muscle was elevated off of the distal clavicle and AC joint. Large dorsal exostosis was removed with a sagittal saw and rongeur. Distal clavicle at the AC joint was then removed with the sagittal saw and smoothed with a rongeur and rasp. Wound thoroughly irrigated with saline. Exposed bone covered with bone wax. Retractors were removed to evaluate the contour of the skin over the area and was noted to be smooth. Fascia repaired with 00 Vicryl interrupted suture. Subcutaneous tissue repaired with 3 0 Monocryl interrupted suture and skin repaired with 3 0 Monocryl subcuticular running suture. Dermabond applied. Sterile dressing applied. Left shoulder then addressed. Left shoulder prepped and draped usual sterile surgical fashion using a ChloraPrep skin just solution. Local anesthetic with 0.5% Marcaine plain. Longitudinal incision made over the dorsum of the distal clavicle and AC joint with 15 blade. Hemostasis controlled electrocautery. Fascia incised in line skin incision. Periosteum, capsule and muscle was elevated off of the distal clavicle and AC joint. Large dorsal exostosis was removed with a sagittal saw and rongeur. Distal clavicle at the AC joint was then removed with the sagittal saw and smoothed with a rongeur and rasp. Wound thoroughly irrigated with saline. Exposed bone covered with bone wax. Retractors were removed to evaluate the contour of the skin over the area and was noted to be smooth. Fascia repaired with 00 Vicryl interrupted suture. Subcutaneous tissue repaired with 3 0 Monocryl interrupted suture and skin repaired with 3 0 Monocryl subcuticular running suture. Dermabond applied. Sterile dressing applied. Patient awoke from anesthesia, extubated and taken to the recovery room in stable condition. All sponge needle and instrument counts correct at the end of the case. Implants None Estimated Blood Loss 40 Drains No Packing No Pathology None sent Complications No immediate complications Condition Stable Disposition PACU [facility] Billing Surgery - Charge Forward: Surgery Billing ([id number] RT, [id number] LT)
== END 2024-11-28 15:15 | disposition home or self-care (01) ==
PROVIDERS: Visit Provider Orthopaedic Surgery
PROC: (CPT 23420; principal; 2024-11-28 12:00)
DX: M19.011 Primary osteoarthritis, right shoulder (principal); M19.012 Primary osteoarthritis, left shoulder; M89.8X1 Other specified disorders of bone, shoulder; G89.29 Other chronic pain; Z79.82 Long term (current) use of aspirin; Z98.890 Other specified postprocedural states; Z80.1 Family history of malignant neoplasm of trachea, bronchus and lung; Z82.49 Family history of ischemic heart disease and other diseases of the circulatory system
CPT/HCPCS: 23120; J0690; A9270; J1100; J1171; J1885; J2003; J2250; J2405; J2704; J3010; J7120

== ENCOUNTER 2024-12-02 08:46 | Outpatient (CLI) | payer MEDICARE, OTHER, SELFPAY ==
--- OUTSIDE RECORDS SUMMARY | 2013-11-29 02:30 | XMS_ITS | Continuity of Care Document ---
Author Organization [employer] [facility] [employer] [facility] Address [address] [facility], [place], operated [facility] [address] Nieves [address] [place] [phone] Phone Care Team Providers Care Rn Ent Name Role Phone Randi OD OD, Wilman Unavailable Unavailabl e Allergies, Adverse Reactions, Alerts Substance Reaction Status Criticality typhoid vaccine Active No Informati on Medications Medication Instructions Dosage Effective Dates (start - stop) Status Comments Restasis 0.05 % eye drops in a dropperette instill 1 drop by ophthalmic route every 12 hours into affected eye(s) 1.00 drop - Active prednisolone acetate 1 % eye drops,suspension instill 1 drop by ophthalmic route 4 times every day into affected eye(s) 1 drop - Active Refresh Tears 0.5 % eye drops as needed - Active diclofenac ER 100 mg tablet,extended release 24 hr take 1 tablet (100MG) by oral route every day 100 MG - Active pantoprazole 20 mg tablet,delayed release take 2 tablet (40MG) by oral route every day 40 MG - Active multivitamin capsule - Active aspirin 81 mg tablet,delayed release take 1 tablet (81MG) by oral route every day 81 MG - Active Procedures Procedure Date Post-op Follow-up Visit TF Polycarb Sph Myton +/-4d Post-op Follow-up Visit Post-op Follow-up Visit Post-op Follow-up Visit Post-op Follow-up Visit Post-op Follow-up Visit Comanaged Refractive Fee ([facility]) 14 Comanaged Refractive Fee ([facility]) 14 No Charge Refractive Evaluation No Charge Refractive Evaluation 014 Refractive Evaluation Advance Directives Directive Yes / No Effective Date File Name No Information Encounters Encounter Description Practice Location Reason(s) For Visit Diagnoses Date Provider Providers Copied on Encounter [facility], [id number] [place] [address] [address], [place], [place], [id number], [place] tel:[phone] [facility] No Information Randi SHERIFF Wilman. [address], [place], [id number], [place]. tel:[phone] Referring Provider: Wilman Bryan OD P, [address] [place], [address] . tel:[phone] [facility], [address] [place] [address] [address], [place], [place], [address], [place] tel:[phone] [facility] No Information [facility] . [address] [facility], [address], [place], [place], [id number], [place]. tel:[phone] Referring Provider: Wilman Bryan OD P, [address] [place], [address] . tel:[phone] sulting Provider: Genevieve Watkins, [address] [facility], [place], [address]. [facility], [address] [place] [address] [address], [place], [place], [address], [place] tel:[phone] [facility] No Information Randi SHERIFF Wilman. [address], [place], [address], [place]. tel:[phone] Referring Provider: Wilman Bryan OD P, [address] [place], [address] . tel:[phone] [facility], [address], [place], [place], [address], [place] tel:[phone] [facility] 1 month post-op PRK OU (chief complaint) Post-op follow-up Farhana OD Morales. [address] [facility], [address], [place], [address], [place]. tel:[phone] Referring Provider: Wilman Bryan OD P, [address] [facility], [place], [address] . tel:[phone] [facility], [address], [place], [place], [address], [place] tel:[phone] [facility] Blurry vision (chief complaint) Post-op follow-up Randi OD Wilman. [address], [place], [address], [place]. tel:[phone] Referring Provider: Wilman Bryan OD P, [address] [facility], [place], [address] . tel:[phone] [facility], [address], [place], [place], [address], [place] tel:[phone] [facility] Blurry vision (chief complaint) Post-op follow-up Nyasiay OD Wilman. [address], [place], [address], [place]. tel:[phone] Referring Provider: Wilman Bryan OD P, [address] [place], [address] . tel:[phone] [facility], [address], [place], [place], [address], [place] tel:[phone] [facility] 1 Day PRK OU PO (chief complaint) Post-op follow-up Mulqueeny OD Wilman. [address], [place], [address], [place]. tel:[phone] Referring Provider: Wilman Popeyetonia OD P, [address] [facility], [place], [address] . tel:[phone] [facility], [address], [place], [place], [address], [place] tel:[phone] [facility] No Information Popeyeeny OD Wilman. [address], [place], [address], [place]. tel:[phone] [facility], [address], [place], [place], [address], [place] tel:[phone] [facility] MYOPIA Nyasiay OD Wilman. [address], [place], [address], [place]. tel:[phone] Referring Provider: Wilman Bryan OD P, [address] [place], [address] . tel:[phone] [facility], [address], [place], [place], [address], [place] tel:[phone] [facility] MYOPIA Nyasiay OD Wilman. [address], [place], [address], [place]. tel:[phone] Referring Provider: Wilman Bryan OD P, [address] [place], [address] . tel:[phone] [facility], [address], [place], [place], [address], [place] tel:[phone] [facility] No Information Randi Stovall. [address] [facility], [place], [id number], . tel:[phone] Referring Provider: Wilman Collier, [address] [facility], [place], [address] . tel:[phone] Family History Family Member Type Diagnosis Age At Onset No Information Payers Payer name Insurance type Covered libertarian ID Authoriza tion(s) No Information Social History Type Description Quantity Date Captured Comments Sex Male Smoking Status No Information Chief Complaint And Reason For Visit No Information Reason For Referral Reason For Referral No Information History Of Present Illness Encounter Date Complaint History Of Prese nt Illness 1 month post-op PRK OU The 58 ye ar old male presents for evaluation of 1 month post-op PRK OU. in the right eye and left eye. It started about 1 month(s) ago. It occurs all the time. The symptom is constant. The condition is stable. Pt presents for 1 month post-op PRK OU visit. Patient reports that his vision has improved since his last visit, but it is still not as clear as he would like. He reports dryness OU. He reports PredForte bid, ATs prn. He reports that today he is very tired as he only had 3 hours of sleep last night.Pt has most difficulty with vision at night. He understands eyes are still healing. Blurry vision The 58 year old male presents for evaluation of Blurry vision. in the right eye and left eye. It started about 2 week(s) ago. It occurs all the time. The onset was gradual. It affects distance vision. Pt c/o blurry vision OU, gradually getting better. Acuity seems to be there but clarity is still blurry. Pt c/o occassional sharp pain, goes away with tears. Blurry vision The 57 year old male presents for 5 day PO PRK OU. Evaluation of Blurry vision. in the right eye and left eye. It started about 5 day(s) ago. It occurs all the time. The onset was gradual. It affects OU. 1 Day PRK OU PO The 57 year old male presents for evaluation of 1 Day PRK OU PO. in the right eye and left eye. It started about 1 day(s) ago. It occurs almost all the time. It affects OU. The symptom is constant. Pt c/o blurry vision OU at distance for one day following surgery, some irritation and dryness, wearing sunglasses just in case but no major light sensitivity, very slight headache. Using drops starting this morning, slept well last night. 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 for post op exam Related to Post-op follow-up - pleased to find ex cellent results OU s/p PRKdisc that as cornea heals astigmatism will begin to flattencont Pred Forte BID x2 weeks until next post op Related to Post-op follow-up - Return in 2 weeks with Wilman Bryan O.D. for post op exam Related to Post-op follow-up - pleased to find im proved results s/p PRK OUremoved bcl OU todaypt aware that OU may have some sensitivity after bcl removalcont Prednisolone QID OUcont AT PRN OUcont Ketorolac QID OUpt to call if symptoms worsen or do not improvefill out pts Eye Eval at fup if pt va 20/20 Related to Post-op follow-up - Return in 1 week w joana Bryan O.D. for post op exam Related to Post-op follow-up - maintain bcl OU-pt informed if bcl falls out not to replace, if no additional discomfort leave out, if too uncomfortable pt to call SPMpt understands va will become more blurred with initial healingpt understands discomfort may increase before getting betterbegin Prednisolone QID OUbegin Ketorolac QID OUbegin Gatifloxacin QID OU x7 daysbegin PF AT PRN OUremove bcl at next post op Related to Post-op follow-up - Return in 3-4 days with Wilman Bryan O.D. for post op exam Related to Post-op follow-up MYOPIA - Fundus exam within normal limits and stable since last visit.Cycloplegic refraction stable. Pt to proceed with consultation with Dr. Nielsen on 08/15/13 and possible surgery PRK Distance OU 09/04/13. Related to MYOPIA - Return with Wilman Bryan O.D. for PRK POST OP. Related to MYOPIA - Return in 3 weeks with Wilman Bryan O.D. for post op exam. 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
--- OUTSIDE RECORDS SUMMARY | 2016-07-18 07:05 | XMS_ITS | Continuity of Care Document ---
Author Organization [facility] Address [address] [facility] [address] [place] [address] Phone Care Team Providers Care Cofounder Name Role Phone Ivan OD OD, Kia Unavailable Unavai lable Allergies, Adverse Reactions, Alerts Substance Reaction Status Criticality No Known Allergies Active No Inform ation Medications Medication Instructions Dosage Effective Dates (start - stop) Status Comments Restasis 0.05 % eye drops in a dropperette instill 1 drop by ophthalmic route every 12 hours into affected eye(s) 1.00 drop - Active Zylet 0.3 %-0.5 % eye drops,suspension instill 1 drop by ophthalmic route 4 times every day into left - Active VITAMIN AND MINERALS (unknown strength) Not Available - Active ASPIR 81 (unknown strength) take 1 tablet by oral route every day Not Available - Active diclofenac sodium 75 mg tablet,delayed release take 1 tablet by oral route 2 times every day 75 MG - No Longer Active Procedures Procedure Date OFFICE/OUTPATIENT VISIT, EST AFTER CATARACT LASER SURGERY OFFICE/OUTPATIENT VISIT, EST OFFICE/OUTPATIENT VISIT, EST OFFICE/OUTPATIENT VISIT, EST SPECIAL EYE EXAM, SUBSEQUENT RIGHT EYE D SPECIAL EYE EXAM, SUBSEQUENT LEFT EYE De POSTOP FOLLOW-UP VISIT AFTER CATARACT LASER SURGERY EYE EXAM & TREATMENT MICROFLUID GABINO TEARS CATARACT SURG W/IOL, 1 STAGE CATARACT SURG W/IOL, 1 STAGE UPGRADE MULTIFOCAL IOL AND SERVICES UPGRADE MULTIFOCAL IOL AND SERVICES OFFICE/OUTPATIENT VISIT, [facility] OPHTHALMIC BIOMETRY RT DILATED EXAM RIGHT EYE DILATED EXAM LEFT EYE Advance Directives Directive Yes / No Effective Date File Name No Information Encounters Encounter Description Practice Location Reason(s) For Visit Diagnoses Date Provider Providers Copied on Encounter OFFICE/OUTPA TIENT VISIT, [facility], [address] [place] [address], [id number], tel:[phone] Oph Consult [facility] Office discharge from eye (chief complaint) Bacterial conjunctivitis of left eyeKeratitis sicca, bilateralPseud ophakia of both eyes 7 Derheimer OD Kia. [address], [address], [place], [place], [id number], [place]. tel:[phone] Referring Provider: Bandar Collier, [address], [place], [address] . tel:[phone] [facility], [address] [place] [address], [id number], tel:[phone] [facility] No Information 7 Juan Portillo. [address], [address], [place], [place], [id number], [place]. tel:[phone] Referring Provider: Bandar Collier, [address], [place], [address] . tel:[phone] OFFICE/OUTPA TIENT VISIT, [facility], [address] [place] [address], [id number], tel:[phone] OPH CONSULT SHANIQUA CLAIRE blurry vision (chief complaint) PseudoaphakiaO ther vitreous opacities, bilateralPCO (posterior capsular opacification) , leftVitreous degeneration, left eyeKeratoconju nct sicca, not specified as Sjogren's, bilateral 7 Derheimer OD Kia. [address], [address], [place], [place], [id number], [place]. tel:[phone] Referring Provider: Kia Love OD, [address], [place], [address] . tel:[phone] OFFICE/OUTPA TIENT VISIT, [facility], [address] [place] [address], [id number], tel:[phone] Oph Consult [facility] Physician Directed follow up PVD (chief complaint) Vitreous degeneration, left eyePCO (posterior capsular opacification) , leftOther vitreous opacities, bilateralPseud oaphakia 7 Derheimer OD Kia. [address], [address], [place], [place], [id number], [place]. tel:[phone] Referring Provider: Bandar Martinez MD P, [address], [place], [address] . tel:[phone] OFFICE/OUTPA TIENT VISIT, [facility], [address] [place] [address], [place], [place], [id number], [place] tel:[phone] OPH CONSULT SHANIQUA CLAIRE flashes (chief complaint)fl oater (chief complaint) PseudoaphakiaP CO (posterior capsular opacification) , leftOther vitreous opacities, bilateralVitre ous degeneration, left eye 6 Derheimer OD Kia. [address], [address], [place], [place], [id number], [place]. tel:[phone] Referring Provider: Kia Love OD, [address], [place], [address] . tel:[phone] [facility], [address] [place] [address], [place], [place], [id number], tel:[phone] OPH CONSULT SHANIQUA CLAIRE feels clicking when he looks down and back OD (chief complaint)sm ear in vision moves around,distr acting OD (chief complaint)as tig. not improved OD (chief complaint) No Information 6 Juan Portillo. [address], [address], [place], [place], [id number], [place]. tel:[phone] Referring Provider: Bandar Collier, [address], [place], [address] . tel:[phone] [facility], [address] [place] [address], [id number], [place] tel:[phone] [facility] [place] No Information 6 Juan Portillo. [address], [address], [place], [place], [id number], [place]. tel:[phone] Referring Provider: Bandar Collier, [address], [place], [address] . tel:[phone] [facility], [address] [place] [address], [id number], tel:[phone] OPH CONSULT SHANIQUA CLAIRE blurry vision (chief complaint) Other secondary cataract, bilateralKerat oconjunct sicca, not specified as Sjogren's, bilateralOther vitreous opacities, bilateral Oct-2 6 Juan Portillo. [address], [address], [place], [place], [id number], [place]. tel:[phone] Referring Provider: Bandar Collier, [address], [place], [address] . tel:[phone] [facility], [address] [place] [address], [id number], [place] tel:[phone] [facility] [place] No Information 6 Juan Portillo. [address], [address], [place], [place], [id number], [place]. tel:[phone] Referring Provider: Bandar Collier, [address], [place], [address] . tel:[phone] [facility], [address] [place] [address], [id number], tel:[phone] [facility] No Information 6 Juan Portillo. [address], [place], [place], [id number], [place]. tel:[phone] Referring Provider: Bandar Collier, [address], [place], [address] . tel:[phone] [facility], [address] [place] [address], [id number], tel:[phone] OPH CONSULT SHANIQUA CLAIRE No Information 6 Juan Portillo. [address], [place], [place], [id number], [place]. tel:[phone] Referring Provider: Bandar Collier, [address], [place], [address] . tel:[phone] OFFICE/OUTPA TIENT VISIT, [facility], [address] [place] [address], [id number], tel:[phone] OPH CONSULT SHANIQUA CLAIRE PRK enhancement (chief complaint) Keratitis sicca, bilateralOther vitreous opacities, bilateralAge-r elated nuclear cataract, right eyeDermatochal asis of left upper eyelidDermatoc halasis of right upper eyelidOther states following surgery of eye and adnexa 6 Juan Portillo. [address], [place], [place], [id number], [place]. tel:[phone] Referring Provider: Bandar Collier, [address], [place], [address] . tel:[phone] Family History Family Member Type Diagnosis Age At Onset Problem (finding) No family history of Di abetes mellitus Problem (finding) No family hist ory of Macular degeneration Problem (finding) No family history of Gl aucoma Problem (finding) No family history of Hy pertension Payers Payer name Insurance type Covered constitution party ID Authorcollinsa tion(s) No Information Social History Type Description Quantity Date Captured Comments Alcohol Use Details Caffeine Use Details Tobacco Use Status No Information Smoking Status Never smoker Sex Male Chief Complaint And Reason For Visit From encounter dated '07/18/2016 12:05'. discharge from eye (chief complaint). Description: The 60 year old male presents for evaluation of discharge from eye in the left eye. It started about 1 day(s) ago. It affects distance vision. The symptom is constant. The condition is not any better. Pt reports that yesterday evening OS had discharge was sore and some itching. Pt denies any photophobia or any problems with OD. Pt states when waki ng up this morning OS was complelely matted shut. Pt has been using At's prn and Restasis BID OU. Reason For Referral Reason For Referral No Information History Of Present Illness Encounter Date Complaint History Of Prese nt Illness discharge from eye The 60 year o ld male presents for evaluation of discharge from eye in the left eye. It started about 1 day(s) ago. It affects distance vision. The symptom is constant. The condition is not any better. Pt reports that yesterday evening OS had discharge was sore and some itching. Pt denies any photophobia or any problems with OD. Pt states when waking up this morning OS was complelely matted shut. Pt has been using At's prn and Restasis BID OU. blurry vision The 60 year old male presents for evaluation of blurry vision in the left eye. Patient states he wants to schedule YAG PC for OS today. Patient states has had YAG in OD and is really bothered by difference in VAs. Ocular comfort is doing well. Patient believes floaters are same since last OV. S/P PC IOL OU. S/P YAG PC OD only. Physician Directed follow up PVD The 60 year old male presents for evaluation of Physician Directed follow up PVD in the left eye. States that he does not notice flashes or floaters as much anymore. Pseudophakic OUYAG PC OD flashes The 60 year old male presents for evaluation of flashes in the left eye. It started about 1 day(s) ago. The symptom is intermittent. The condition is not any better. floater The patient is p resent for evaluation of floater in the left eye. It started about 1 day(s) ago. The symptom is frequent. The condition is not any better. astig. not improved astig. not i mproved OD feels clicking whe n he looks down and back feels clicking when he looks down and back OD smear in vision move s around,distracting smear in vision moves around,distracting OD blurry vision The 60 year old male presents for evaluation of blurry vision in the right eye. It started about 9 month(s) ago. The symptom is constant. The condition is significant. Pt states OD is better at distance and OS near is better. +1.25 otc readers, Pt is having a diffcult time balancing both eyes together. Crystal lens OU.Ref Michele for LRI eval OD.Restasis OU prn 2x weekly. Refresh OU PRN.Optial Biometry ARNOLDO, and TearLab order.[id number] PRK enhancement The 59 year old male presents for evaluation of PRK enhancement in the right eye and left eye. It started about 1 year(s) ago. The symptom is constant. The condition is significant. Pt unhappy with first PRK OU. Blurry OU. 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 Ref by Dr. Wilman Bryan. Using Restasis bid OU. Functional Status Date Functional Assessmen t No Information Instructions Date Instruction Additional Infor ferny Follow up - RTO 1 yr Impression/Plan - No treatment. Continue to observe. 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 Related to Keratitis sicca, bilateral Impression/Plan - Di scussed dx with pt in detail today. Advised pt to wash hands and towels and start Zylet QID OS x 1 week. ERx was sent to pharmacy today. Related to Bacterial conjunctivitis of left eye Impression/Plan - Th ere is no evidence of permanent changes to the cornea. Explained condition does not have a cure and will need artificial tears for maintenance. Related to Keratoconjunct sicca, not specified as Sjogren's, bilateral Impression/Plan - Di scussed signs and symptoms of PVD/floaters. Discussed signs and symptoms of retinal detachment. No change to current treatment. Reassured patient of current condition and treatment. Will continue to observe condition and or symptoms. Educational materials provided:Flashers/floaters. Related to Vitreous degeneration, left eye Impression/Plan - Di scussed diagnosis in detail with patient. Discussed treatment options with patient. Will proceed with surgical treatment today. 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 Discussed signs and symptoms of retinal detachment. Will continue to observe condition and or symptoms. Educational materials provided:Flashers/floaters. Related to Other vitreous opacities, bilateral Impression/Plan - s/ p Crystalens IOL OU & YAG OD - Stable Related to Pseudoaphakia Impression/Plan - No t visually significant at this time. Will cont. to observe. Pt to call the office if VA becomes affected. Related to PCO (posterior capsular opacification), left Impression/Plan - Di scussed signs and symptoms of PVD/floaters. Discussed signs and symptoms of retinal detachment. No change to current treatment. Reassured patient of current condition and treatment. Will continue to observe condition and or symptoms. Educational materials provided:Flashers/floaters. Related to Vitreous degeneration, left eye Impression/Plan - Di scussed signs and symptoms of PVD/floaters. Discussed signs and symptoms of retinal detachment. Will continue to observe condition and or symptoms. Educational materials provided:Flashers/floaters. Related to Other vitreous opacities, bilateral Impression/Plan - s/ p Crystalens IOL OU & YAG OD - Stable Related to Pseudoaphakia Follow up - RTO 1 year for comp exam Follow up - RTO in 1 month for follow up with DM Impression/Plan - Di scussed signs and symptoms of PVD/floaters. Discussed signs and symptoms of retinal detachment. No change to current treatment. Reassured patient of current condition and treatment. Will continue to observe condition and or symptoms. Educational materials provided:Flashers/floaters.RTO in 1 month for follow up Related to Vitreous degeneration, left eye Impression/Plan - Di scussed signs and symptoms of PVD/floaters. Discussed signs and symptoms of retinal detachment. Will continue to observe condition and or symptoms. Educational materials provided:Flashers/floaters. Related to Other vitreous opacities, bilateral Impression/Plan - No t visually significant at this time. Will cont. to observe. Pt to call the office if VA becomes affected. 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 No treatment is required at this time. Will continue to observe condition and or symptoms. Call if VA worsens or sudden onset of dozens of floaters with flashes of light. Related to Other vitreous opacities, bilateral Impression/Plan - Di scussed diagnosis in detail with patient. Discussed treatment options with patient. Patient instructed to use artificial tears as needed. Will continue to observe condition and or symptoms. Related to Keratoconjunct sicca, not specified as Sjogren's, bilateral Impression/Plan - Di scussed diagnosis in detail with patient. Discussed treatment options with patient. Schedule Yag OU OD onlyIf no improvement discussed LRI OU. Related to Other secondary cataract, bilateral Impression/Plan - S/P PRK OU Rel ated to Other states following surgery of eye and adnexa Impression/Plan - Th ere is no evidence of permanent changes to the cornea. Explained condition does not have a cure and will need artificial tears for maintenance.Restasis 1 gtt BID OU Related to Keratitis sicca, bilateral Impression/Plan - Di scussed diagnosis in detail with patient. No treatment is required at this time. Will continue to observe condition and or symptoms. Related to Other vitreous opacities, bilateral Impression/Plan - Di scussed all risks, benefits, procedures and recovery. Patient understands changing glasses will not improve vision. Patient desires to have surgery, recommend phacoemulsification with intraocular lens.Ref by Dr. Harrison OU Related to Age-related nuclear cataract, right eye Impression/Plan - Di scussed diagnosis in detail with patient. No treatment is required at this time. Will continue to observe condition and or symptoms. Related to Dermatochalasis of left upper eyelid Impression/Plan - Di scussed diagnosis in detail with patient. No treatment is required at this time. Will continue to observe condition and or symptoms. Related to Dermatochalasis of right upper eyelid Assessments Type Assessment Date impression Bacterial conjunctivitis of left eye: H10.9. assessment Bacterial conjunctivitis of left eye impression Keratitis sicca, bilateral: H16. 223. assessment Keratitis sicca, bilateral impression Pseudophakia of both eyes: Z96.1. s/p Crystal lens OU / s/p YAG PC OU assessment Pseudophakia of both eyes Patient Care Teams Name Effective Dates (start - stop) Status Members No Information
--- NOTE | ~2024-12-02 | XR_ITS ---
EXAMINATION: XR shoulder LT min 2V DATE: 12/02/2024 09:47 INDICATION: Primary osteoarthritis TECHNIQUE: 3 images of the left shoulder were obtained COMPARISON: 04/29/2024 FINDINGS: Grossly stable widening of the left AC joint. Stable degenerative change in the left AC joint and left glenohumeral joint. Stable anchor in the left humeral head. Probable Hill-Sachs deformity, unchanged. No new fracture. No new dislocation. IMPRESSION: 1. No new fracture or dislocation. 2. Grossly stable exam as compared to the study from 04/29/2024. If symptoms persist or worsen, consider a short-term follow-up study or MRI imaging for further assessment. Reviewed, dictated and finalized at location Q. IMPRESSION: 1. No new fracture or dislocation. 2. Grossly stable exam as compared to the study from 04/29/2024. If symptoms persist or worsen, consider a short-term follow-up study or MRI alanis ging for further assessment.
--- NOTE | ~2024-12-02 | XR_ITS ---
EXAMINATION: XR shoulder RT min 2V DATE: 12/02/2024 09:47 INDICATION: Primary osteoarthritis TECHNIQUE: 3 images of the right shoulder were obtained COMPARISON: 04/29/2024 FINDINGS: No new fracture or dislocation. Surgical anchor in the right humeral head, unchanged. Grossly stable degenerative change in the right acromioclavicular joint. Slight interval worsening in the moderate to severe narrowing of the right glenohumeral joint. Bone mineralization is grossly unchanged. Bony ir regularity of the greater tuberosity, unchanged. IMPRESSION: 1. No new fracture or dislocation. 2. Slight interval worsening in the narrowing of the right glenohumeral joint. 3. Grossly stable degenerative change in the right acromioclavicular joint. If symptoms persist or worsen, consider a short-term follow-up study or MRI imaging for further assessment. Reviewed, dictated and finalized at location Q. IMPRESSION: 1. No new fracture or dislocation. 2. Slight interval worsening in the narrowing of the right glenohumeral joint. 3. Grossly stable degenerative change in the right acromioclavicular joint. If symptoms persist or worsen, consider a short-term follow-up study or MRI alanis ging for further assessment.
--- OUTSIDE RECORDS SUMMARY | 2024-12-02 09:04 | XMS_ITS | Clinical Summary ---
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
--- OUTSIDE RECORDS SUMMARY | 2024-12-02 09:05 | XMS_ITS | Encounter Summary ---
Author Organization [facility] Address [address] [place] [address] Care Team Providers Care Paid Intern Name Role Phone Unavailable Primary Care Provider Unavailabl e Encounter Details Date Type Department Care Team (Late st Contact Info) Description 08/19/1999 Outpatient Historical [facility] - [place] [id number] 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
== END 2024-12-02 08:47 | disposition home or self-care (01) ==
LOC: CHSIMG 08:48
PROVIDERS: Visit Provider Orthopaedic Surgery
DX: M19.012 Primary osteoarthritis, left shoulder (principal); M19.011 Primary osteoarthritis, right shoulder
CPT/HCPCS: 73030